=== PATIENT | female | born 1965 | race Caucasian/White ===

== ENCOUNTER 2020-03-31 08:17 | Outpatient (CLI) | payer OTHER, SELFPAY ==
--- NOTE | ~2020-03-31 | MM_ITS ---
EXAMINATION: MM screening [facility] BI w joon HISTORY: Screening mammogram TECHNIQUE: Craniocaudal and mediolateral oblique 3-D tomosynthesis images were obtained and synthetic 2-D images were generated. CAD analysis was submitted and interpreted. COMPARISON: 10/16/2018, 11/09/2017, 10/11/2016 bilateral digital screening mammogram examinations BREAST PARENCHYMAL COMPOSITION: The breasts are almost entirely fatty..................... FINDINGS: There is no evidence of suspicious mass, calcification, or architectural distortion to sugg est malignancy in either breast. There has been no suspicious interval change. IMPRESSION: 1. No mammographic evidence of malignancy. 2. Recommend routine screening mammography in one year. BI-RADS Category 1: Negative Reviewed, dictated and finalized at location A.
== END 2020-03-31 08:18 | disposition home or self-care (01) ==
PROVIDERS: PCP Family Medicine; Visit Provider Physician Assistant Medical
DX: Z12.31 Encounter for screening mammogram for malignant neoplasm of breast (principal)
CPT/HCPCS: 77063; 77067

== ENCOUNTER 2020-12-13 13:50 | Outpatient (CLI) | payer OTHER, SELFPAY ==
--- NOTE | 2020-12-13 14:10 | ECHO_ITS ---
Patient Info Name: Ayla Martinez Age: 55 years : 1965 Gender: Female Ht: 63 in Wt: 176 lbs BSA: 1.91 m2 HR: 68 bpm BP: 160 / 82 mmHg Technical Quality: Fair Exam Date: 12/13/2020 2:36 PM Exam Location: [facility] Patient Status: Outpatient Admit Date: 12/13/2020 Staff Ordering Physician: Amy Pineda PAC Building Services Technician: ANGELINE Attending Provider: Amy Pineda PAC Referring Physician: Miriam WISEMAN; Exam Type: CA echo doppler color flow Study Info Indications - CARDIAC MURMUR Complete two-dimensional, color flow and Doppler transthoracic echocardiogram is performed. Summary 1. Complete two-dimensional, color flow and Doppler transthoracic echocardiogram is performed. 2. Left ventricular chamber dimension is normal. 3. Left ventricular systolic function is normal, estimated at 60-65%. 4. The left ventricular diastolic function is normal. 5. E/e' 7 is not elevated. 6. There is trace mitral valve regurgitation. Left Ventricle E/e' 7 is not elevated. Left ventricular chamber dimension is normal. Left ventricular systolic function is normal, estimated at 60-65%. The left ventricular diastolic function is normal. Right Ventricle Right ventricular chamber dimension is normal. Right ventricular systolic function is normal. Left Atria Left atrial chamber dimension is normal. Right Atria Right atrial chamber dimension is normal. Aortic Valve The aortic valve is trileaflet. There is no aortic valve stenosis. There is no aortic valve regurgitation. Pulmonic Valve There is no pulmonic regurgitation. Mitral Valve There is no mitral valve stenosis. There is trace mitral valve regurgitation. Tricuspid Valve There is no tricuspid valve regurgitation. Pericardium/Pleural There is no pericardial effusion. Inferior Vena Cava Normal inferior vena cava with >50% collapse upon inspiration consistent with normal right atrial pressure, 5 mmHg. Aorta The aortic root size at the sinus of Valsalva is normal. Left Ventricular Outflow Tract Name Value Normal LVOT 2D LVOT Diameter 2.2 cm LVOT Doppler LVOT Peak Gradient 5 mmHg LVOT Mean Gradient 3 mmHg LVOT VTI 25 cm LVOT VTI/AV VTI Ratio 0.7 LVOT Stroke Volume 93 ml LVOT CO 16.0 l/min LVOT CI 8.4 l/min/m2 Mitral Valve Name Value Normal MV Doppler MV Decel Pickett 364 cm/s2 MV PHT 65 ms MV Area (PHT) 3.4 cm2 4.0-5.0 MV Regurgitation Doppler MR Peak Gradient 12 mmHg
== END 2020-12-13 13:51 | disposition home or self-care (01) ==
PROVIDERS: PCP Family Medicine; Visit Provider Physician Assistant Medical
DX: R01.1 Cardiac murmur, unspecified (principal)
CPT/HCPCS: 93306

== ENCOUNTER 2021-02-02 09:38 | Outpatient (CLI) | payer OTHER, SELFPAY ==
--- NOTE | ~2021-02-02 | DEXA_ITS ---
Bone Density Report Name: Ayla Martinez Age: 55 Sex: Female Ethnicity: White Date of : 1965 Indication: postmenopausal; hysterectomy; Referring Provider: Amy Pineda Study: Bone densitometry was performed. Exam Date: February 02, 2021 Accession number: [id number] Bone Density: Region BMD T-score Z-score Classification AP Spine (L1-L4) 1.030 -0.2 0.9 Normal Femoral Neck (Left) 0.849 0.0 1.1 Normal Total Hip (Left) 0.999 0.5 1.2 Normal Total Hip Bilateral Avg 0.979 0.3 1.0 Normal Femoral Neck (Right) 0.811 -0.3 0.7 Normal Total Hip (Right) 0.958 0.1 0.8 Normal World Health Organization criteria for BMD impression classify patients as: Normal (T-score at or above -1.0), Osteopenia (T-score between -1.0 and -2.5), or Osteoporosis (T-score at or below -2.5). 10-year Fracture Risk: FRAX not reported because: All T-scores for Spine Total, Hip Total, Femoral Neck at or above -1.0 Previous Exams: Region Exam Age BMD T-score BMD Change BMD Change Date g/cm2 vs Baseline vs Previous AP Spine(L1-L4) 02/02/2021 55 1.030 -0.2 -0.019(-1.8%)# 0.000(0.0%) 10/16/2018 52 1.030 -0.2 -0.019(-1.8%)# -0.007(-0.6%) 10/11/2016 50 1.037 -0.1 -0.012(-1.1%)# -0.012(-1.1%)# 04/25/2010 44 1.049 0.0 Total Hip(Left) 02/02/2021 55 0.999 0.5 -0.075(-7.0%)# -0.061(-5.8%)* 10/16/2018 52 1.060 1.0 -0.014(-1.3%)# 0.010(1.0%) 10/11/2016 50 1.050 0.9 -0.024(-2.2%)# -0.024(-2.2%)# 04/25/2010 44 1.074 1.1 Total Hip(Right) 02/02/2021 55 0.958 0.1 -0.111(-10.4%) -0.141(-12.8%) 10/16/2018 52 1.099 1.3 0.029(2.8%)# 0.092(9.2%)* 10/11/2016 50 1.007 0.5 -0.063(-5.9%)# -0.063(-5.9%)# 04/25/2010 44 1.070 1.0 *Denotes significance at 95% confidence level, LSC for AP Spine = 0.022 g/cm2, LSC for Total Hip = 0.027 g/cm2 Clinical Information Provided by Patient: Has used the following medications: Vitamin D Has the following medical conditions: Hysterectomy, HYPERTHYROIDISM Patient maximum height was 63 Menopause Age: 30 No regular weight bearing exercise Drinks caffeinated beverages Onset of menses at age 15 Number of children 2 Impression: The patient has normal bone mass. The BMD for the Total Hip(Left) decreased, changing by -5.8% since the last DXA exam. The BMD for the Total Hip(Right) decreased, changing by -12.8% since the last DXA exam. Discussion: BONE DENSITY IS ABOVE THE MINIMUM
== END 2021-02-02 09:39 | disposition home or self-care (01) ==
LOC: ANHIMG 09:41
PROVIDERS: PCP Family Medicine; Visit Provider Physician Assistant Medical
DX: Z13.820 Encounter for screening for osteoporosis (principal)
CPT/HCPCS: 77080

== ENCOUNTER 2021-05-11 07:31 | Outpatient (CLI) | payer OTHER, SELFPAY ==
--- NOTE | ~2021-05-11 | MM_ITS ---
EXAMINATION: MM screening [facility] BI w ojon HISTORY: Screening TECHNIQUE: Craniocaudal and mediolateral oblique 3-D tomosynthesis images were obtained and synthetic 2-D images were generated. CAD analysis was submitted and interpreted. COMPARISON: Comparison to multiple prior studies sequentially, with oldest reviewed study dated 06/12. BREAST PARENCHYMAL COMPOSITION: There are scattered areas of fibroglandular density. FINDINGS: There is no evidence of suspicious mass, calcification, or architectural distortion to sugg est malignancy in either breast. There has been no suspicious interval change. IMPRESSION: 1. No mammographic evidence of malignancy. 2. Recommend routine screening mammography in one year. BI-RADS Category 1: Negative Reviewed, dictated and finalized at location A.
== END 2021-05-11 07:32 | disposition home or self-care (01) ==
LOC: ANHIMG 07:33
PROVIDERS: PCP Family Medicine; Visit Provider Nurse Practitioner Family
DX: Z12.31 Encounter for screening mammogram for malignant neoplasm of breast (principal)
CPT/HCPCS: 77063; 77067

== ENCOUNTER 2022-08-26 15:23 | Outpatient (CLI) | payer OTHER, SELFPAY ==
--- NOTE | ~2022-08-26 | MM_ITS ---
EXAMINATION: MM screening [facility] BI w joon HISTORY: Screening TECHNIQUE: Craniocaudal and mediolateral oblique 3-D tomosynthesis images were obtained and synthetic 2-D images were generated. CAD analysis was submitted and interpreted. COMPARISON: Comparison to multiple prior studies sequentially, with oldest reviewed study dated 11/2015. BREAST PARENCHYMAL COMPOSITION: Breast composed of scattered areas of fibroglandular density FINDINGS: There is no evidence of suspicious mass, calcification, or architectural distortion to sugg est malignancy in either breast. There has been no suspicious interval change. IMPRESSION: 1. No mammographic evidence of malignancy. 2. Recommend routine screening mammography in one year. BI-RADS Category 1: Negative Reviewed, dictated and finalized at location A. GRAPH LINEMAN
== END 2022-08-26 15:24 | disposition home or self-care (01) ==
PROVIDERS: PCP Family Medicine; Visit Provider Nurse Practitioner Family
DX: Z12.31 Encounter for screening mammogram for malignant neoplasm of breast (principal)
CPT/HCPCS: 77063; 77067

== ENCOUNTER 2022-09-27 06:54 | Inpatient (IN) | payer OTHER, SELFPAY ==
[2022-09-27] VITALS (46 sets, daily range): BP systolic 141–176; BP diastolic 64–85; PULSE 49–89; RESP 10–20; TEMP 35.8–36.4; O2SAT 99–100; BMI 32.2
--- NOTE | ~2022-09-27 | CT_ITS ---
EXAMINATION: CTA chest PE protocol DATE: 09/27/2022 09:17 CDT INDICATION: Pulmonary embolism. Chest pain. Elevated d-dimer. TECHNIQUE: Computed tomographic angiography (CTA) of the chest was performed with 100 mL Omnipaque-35 0 intravenous contrast. The dose-length product was 585.13 mGy-cm. Maximum intensity projection 3D-re constructions of the aorta and other arteries were constructed by the technologist on a separate work station. Automated exposure control and iterative reconstruction technique were employed. COMPARISON: None. FINDINGS: Heart size normal. No significant pleural or pericardial effusion. No evidence for aortic a neurysm or dissection. Study is technically limited without evidence for pulmonary embolism. No thora cic lymphadenopathy. Upper abdomen is unremarkable. No focal airspace consolidation. No pneumothorax. No acute osseous abnormality. Mild lumbar spondylosis. IMPRESSION: 1. No evidence for pulmonary embolism. No acute cardiopulmonary disease. Reviewed, dictated and finalized at location A.
--- NOTE | ~2022-09-27 | XR_ITS ---
EXAMINATION: XR chest 2V 09/27/2022 07:48 INDICATION: Chest pressure. Hypertension. PROCEDURE: 2 view chest COMPARISON: 04/17/2004 FINDINGS: The lungs are clear. The cardiomediastinal silhouette is within normal limits. There are no pleural effusions. There is no pneumothorax suspected. IMPRESSION: 1: NO ACUTE CARDIOPULMONARY DISEASE. Reviewed, dictated and finalized at location A.
--- NOTE | 2022-09-27 06:56 | ECG_ITS ---
Measurements Intervals [place] Rate: 73 P: 30 [place]: 151 QRS: 49 QRSD: 97 T: 17 QT: 380 QTc: 419 Interpretive Statements SINUS RHYTHM BASELINE ARTIFACT- V5 NORMAL ECG NO PREVIOUS ECG AVAILABLE FOR COMPARISON Electronically Signed On 09-27-2022 8:13:16 CDT by Toney Montero D.O.
--- NOTE | 2022-09-27 07:12 | ED.CHESTPAIN ---
HPI - Chest Pain General Chief Complaint: Chest Pain Stated Complaint: chest pain/pressure Time Seen by Provider: 09/27/22 07:12 Source: patient and family Mode of arrival: ambulatory Limitations: no limitations History of Present Illness HPI narrative: Patient woke up at 530 this morning to go to the bathroom. In the way to the bathroom developed severe chest pressure across the chest, and across the back, radiating to right upper extremity. She denies any aggravating or relieving factors. 7 out of 10, on arrival to the ED 4 out of 10, patient did not receive any medication at that time, did not take her morning medication yet. History of hypertension, hyperlipidemia, diabetes, hypothyroidism and both parents had history of heart attack. Patient is not on antiplatelet or anticoagulant medications. Related Data Home Medications Medication Instructions Recorded Confirmed loratadine 10 mg tablet (Claritin) 10 mg PO DAILY 03/10/22 09/27/22 cholecalciferol (vitamin D3) 25 25 mcg PO DAILY 09/23/22 09/23/22 mcg (1,000 unit) tablet omega 2-pqv-wmp-fish oil 1,200 mg cap PO 09/23/22 09/23/22 (144 mg-216 mg) capsule (Fish Oil) atorvastatin 40 mg tablet 40 mg PO 09/27/22 dapagliflozin 5 mg tablet (Farxiga) 5 mg DAILY 09/27/22 levothyroxine 100 mcg tablet 100 mcg DAILY 09/27/22 omeprazole 20 mg capsule,delayed 20 mg DAILY 09/27/22 release Allergies Allergy/AdvReac Type Severity Reaction Status Date / Time lisinopril Allergy Severe Swelling Verified 09/27/22 07:35 of the Eye simvastatin AdvReac Intermediate Palpitation Verified 09/27/22 07:35 s Review of Systems Review of Systems: All systems reviewed & are unremarkable except as noted in HPI and below PMFSH Past Medical History Medical History Adult BMI 31.0-31.9 kg/sq m COVID COVID-19 Surgical History Surgical History H/O: section H/O: hysterectomy Family History Family History Mother Hypertension Family history of diabetes mellitus in first degree relative Acute myocardial infarction Father Cerebrovascular accident Acute myocardial infarction Sibling Family history of diabetes mellitus in first degree relative Diabetes mellitus Acute myocardial infarction Sibling COPD (chronic obstructive pulmonary disease) Social History Social History Smoking status: Never smoker Second hand tobacco smoke exposure: Yes Alcohol intake: never Substance use: never Substance use type: does not use Living arrangements: with family Occupation/Education: occupation 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 Gender identity (if verbalized by the patient): Female Exam Narrative: General appearance: Well-developed, well-nourished Skin: Normal color Head: Normocephalic, nontraumatic Eyes: Clear conjunctiva ENT: Oropharynx normal, ears normal, nose normal Neck: Supple, nontender Chest and respiratory: Airway patent, no respiratory distress, no accessory muscle use Heart: Regular rate/rhythm Abdomen: Soft, nontender, no organomegaly, quiet bowel sounds Vascular: Normal peripheral pulses, normal capillary refill. Musculoskeletal: Normal range of motion, nontender back, slight diffuse tenderness across the chest and across the back, no bruises, no swelling or rash Neurologic: Alert and oriented ?3, INSIDE SALES ADVISOR is normal as tested, no gross motor deficit Course Reevaluation(s) Reeval
[2022-09-27 07:38] LABS: Basophils Percent Auto 0.3 % (0.2-1.2); Eosinophils Percent Auto 0.2 % (0-4.4); Hematocrit 37.7 % (37.0-47.0); Hemoglobin 11.2 g/dL (12.0-15.0); Immature Granulocyte Absolute 0.04 K/mm3 (0.00-0.031); Immature Granulocyte Percent A 0.5 % (0-0.5); Lymphocytes Percent Auto 22.6 % (18.3-44.2); Mean Corpuscular HGB Conc 29.7 g/dl (32-36); Mean Corpuscular Hemoglobin 24.7 pg (26-34); Mean Corpuscular Volume 83.2 fl (80-100); Mean Platelet Volume 9.4 fl (7.4-10.4); Monocytes Absolute Auto 0.5 K/mm3 (0.1-0.6); Monocytes Percent Auto 5.1 % (2.6-8.5); Neutrophils Absolute Auto 6.3 K/mm3 (1.3-6.7); Neutrophils Percent Auto 71.3 % (45.5-73.1); Platelet Count Result 425 k/mm3 (150-375); Red Blood Count 4.53 M/mm3 (4.2-5.4); Red Cell Distribution Width 16.6 % (11.5-14.5); White Blood Count 8.9 K/mm3 (4.5-10.0)
--- NOTE | 2022-09-27 07:42 | PC.NURSE ---
Pt off floor to radiology
[2022-09-27 07:49] LABS: Alanine Aminotransferase 21 U/L (6-35); Albumin Level 4.7 g/dL (3.5-5.1); Alkaline Phosphatase 73 U/L (38-126); Anion Gap 8 mmol/L (8-16); Aspartate Amino Transferase 19 U/L (14-36); Bilirubin,Total 0.5 mg/dL (0.2-1.3); Blood Urea Nitrogen 14 mg/dL (7-17); Calcium 9.5 mg/dL (8.4-10.2); Carbon Dioxide 29 mmol/L (22-30); Chloride 105 mmol/L (98-107); Estimated CRCL calculation 90 ml/min; Estimated Glomerular Filt Rate > 60; Glucose 115 mg/dL (65-110); Lipase 110 U/L (23-300); Potassium 3.7 mmol/L (3.4-5.0); Sodium 142 mmol/L (137-145)
[2022-09-27 07:53] LABS: Platelet Estimate Increased (Adequate)
[2022-09-27] MEDS: ASPIRIN 81 MG CHEWABLE TABLET 324 MG PO (07:53)
[2022-09-27 07:54] LABS: Anisocytosis 1+ (NORMAL); Hypochromasia 1+ (NORMAL); Schistocytes None Seen (NORMAL)
[2022-09-27] MEDS: METOPROLOL TARTRATE 50 MG TAB 25 MG PO (07:54)
[2022-09-27] MEDS: NITROGLYCERIN SL 0.4 MG TABLET SUBLINGUAL (07:57)
[2022-09-27 08:20] LABS: Prothrombin Time 12.7 Seconds (11.1-14.7)
--- NOTE | 2022-09-27 09:04 | PC.NURSE ---
Pt off floor for CTA
[2022-09-27 10:41] LABS: Troponin I 0.099 ng/mL (0.000-0.034)
--- NOTE | 2022-09-27 10:43 | ECG_ITS ---
Measurements Intervals [place] Rate: 55 P: 41 TN: 164 QRS: 55 QRSD: 92 T: 47 QT: 410 QTc: 395 Interpretive Statements SINUS BRADYCARDIA BASELINE ARTIFACT- I, III, AVR, AVL, V1 BORDERLINE ECG COMPARED TO ECG 09/27/2022 07:01:34 SINUS BRADYCARDIA NOW PRESENT Electronically Signed On 09-27-2022 21:29:21 CDT by Toney Montero D.O.
[2022-09-27] MEDS: ENOXAPARIN 80 MG/0.8 ML SYRINGE SUB-Q (13:44)
[2022-09-27 14:57] LABS: Troponin I 0.601 ng/mL (0.000-0.034)
--- NOTE | 2022-09-27 15:53 | PM.CNCAR ---
Assessment and Plan Assessment and plan (1) Non-ST elevated myocardial infarction: Code(s): I21.4 - Non-ST elevation (NSTEMI) myocardial infarction Status: Acute Assessment and Plan: Patient without prior symptoms has developed an acute coronary syndrome with a non-STEMI. Has been pain-free since admission. EKG shows very questionable ST depression in the lateral leads on admission. Hemodynamically stable at the present time. However, having a non-STEMI puts her at risk of significant morbidity and mortality. --counseled patient and her daughter on non-STEMI, coronary disease, evaluation and treatment. --continue aspirin --continue anticoagulant, either Lovenox or heparin. She was given 1 dose of Lovenox in the ER and we will continue that. --beta-christopher is tolerate; somewhat bradycardic at this time, after given a dose of beta-christopher in ER. --check lipids --continue atorvastatin, currently taking 40 mg daily. Will increase to 80 mg daily. --cardiac catheterization on Thursday, +/- PCI depending on the anatomy. Since pt has had no angina, I wonder if she has any significant CAD; perhaps plaque rupture/erosion with superimposed thrombus which may improve significantly w/ anticoagulation and antiplatelet tx. --If the patient becomes unstable we perform cardiac catheterization emergently. Reviewed procedure with patient and daughter. Patient desires to proceed. (2) Hypertension: Code(s): I10 - Essential (primary) hypertension Status: Acute Assessment and Plan: --BP has been quite high since admission although normally well controlled --continue losartan, added metoprolol (3) Dyslipidemia: Code(s): E78.5 - Hyperlipidemia, unspecified Status: Acute Assessment and Plan: Takes atorvastatin 40 mg daily. --check lipids --increased to 80 mg daily (4) Type 2 diabetes mellitus: Code(s): E11.9 - Type 2 diabetes mellitus without complications Status: Acute Assessment and Plan: Sounds like the diabetes is well controlled.--continue Farxiga, metformin History of Present Illness History of Present Illness Consult date/time: 09/27/22 15:53 Reason For Visit: chest pain Narrative: Ayla Martinez is a 56-year-old female whom I was asked to see at the request of Dr. Enriquez for my advice and been regarding her chest pain in consultation. She has no prior history of heart disease. She does have hypertension, hyperlipidemia, diabetes, and a family history of heart problems. Were then has been in normal state of health until earlier this week when she is our primary care doctor because of dizziness and was given a short course of prednisone and meclizine with improvement. This morning at around 5:30 a.m. she went to go to the bathroom M suddenly noted significant chest heaviness wrapping around her lower chest, to the left scapular area and later settling into a substernal ache radiating to the right arm. There are no associated symptoms. However so alarming such her brought her to the emergency room on 01/09 where she was given some Lopressor nitroglycerin aspirin with relief. She has been doing well since then. However, her troponins around 0.60. Until today the patient has been able to walk fasting sugar with no particular problems. Her diabetes is control with an A1c of 7.0 and her blood pressure has been controlled as well. She is a nonsmoker. No particular problems with bleeding issues. Review of Systems Constitutional: Constitutional: Denies fever(s) Eyes: Eyes: Reports blurry vision (Episode of blurred vision about a week ago. Unclear etiology.) ENT: Denies epistaxis Cardiovascular: Cardiovascular: Reports chest pain (This morning), Denies pedal edema, Denies lightheadedness and Denies dyspnea Respiratory: Respiratory: Denies chest congestion and Denies dyspnea Gastrointestinal: Gastrointestinal: Denies abdominal pain and Denies h
--- NOTE | 2022-09-27 15:59 | PC.NURSE ---
This patient, Ayla Martinez, was admitted to IMU Room 210-01 from ED at 11:48 am Patient/family oriented to hospital policies and general routines including ID bracelet, bed and alarms, visiting hours, pain management, procedures, bathroom and other care routines, personal items, smoking policy, room service/diet, and visiting hours. Information on how to activate the Rapid Response Team has been discussed. Patient/Family are encouraged to report perceived risks to care and to ask questions if they do not understand what they are told or what they should do.
--- NOTE | 2022-09-27 16:00 | PM.IMHP ---
H&P: HPI History of Present Illness Date/Time: 09/27/22 16:00 Chief Complaint: Chest pain. Narrative: This is a pleasant 56-year-old female with hypertension, dyslipidemia, type 2 diabetes mellitus, hypothyroidism, and GERD who presented to the emergency department via private vehicle from home for evaluation of chest pain. Patient provides the following history. She has been suffering from vertigo the last couple of weeks, mainly in the morning, and she was started on prednisone and meclizine several days ago for reported fluid behind the ears. She has otherwise been doing okay. This morning she got up to use the restroom at about 05:30 at which time she developed pretty significant heaviness/pressure diffusely across the chest, radiating to the left scapula. It seemed to settle in the substernal region and she has aching and pressure radiating to the right arm. She lay down for a period of time but the discomfort did not resolve and remained pretty intense, which she rated 7/10. She was given aspirin and nitroglycerin in the ED with resolution in her symptoms and they have not returned. She has never had similar symptoms in the past. She has no known history of cardiac disease and has never had a stress test. Both of her parents had history of MS though later in life, 70s and 80s. Blood pressures have been pretty consistently in the 160s over 70s since arrival though she admits to feeling anxious. Remaining vital signs were stable. Labs were significant for normal electrolytes and LFTs, slightly elevated D-dimer at 1.20, and an initial troponin which was within normal limits. Troponins have since trended as followin.030 --> 0.099 --> 0.601. EKG showed a sinus rhythm with normal axis and no ST segment changes. CTA of the chest was negative for pulmonary embolism and acute cardiopulmonary disease. Since arrival she has received aspirin 324 mg p.o., metoprolol 25 mg p.o., and enoxaparin 50 mg subcu. She is being admitted in this setting for close monitoring and Cardiology consultation. Review of Systems Review of Systems: Twelve systems were reviewed. No fever, chills, or sweats. No recent cold or flu symptoms. Occasional tinnitus which is not a new finding for her. She has been having some vertigo as detailed in HPI. No other neurologic symptoms. She denies orthopnea, paroxysmal nocturnal dyspnea, and edema. No nausea, vomiting, diarrhea, or dysuria. She admits that she does not check her blood sugars or blood pressures at home very often. Most recent hemoglobin A1c was about 7%. Except as documented, all other systems were reviewed and are negative. [facility] Past Medical History Medical History (Updated 09/27/22 @ 16:20 by Cindy Canales PA-C) Dyslipidemia Hypertension Hypothyroidism Type 2 diabetes mellitus Surgical History Surgical History (Updated 09/27/22 @ 16:17 by Cindy Canales PA-C) History of delivery History of hysterectomy Family History Family History Mother Hypertension Family history of diabetes mellitus in first degree relative Acute myocardial infarction MS in her late 60s Father Cerebrovascular accident Stroke in his mid 60s Acute myocardial infarction MS in his mid 50s , Onset Age: 70 Sibling Family history of diabetes mellitus in first degree relative Diabetes mellitus Acute myocardial infarction Sibling COPD (chronic obstructive pulmonary disease) Social History Social History (Updated 09/27/22 @ 21:47 by Cindy Canales PA-C) Social History: Surrogate medical decision maker: Ramesh Martinez, spouse. Code status: Full code. Smoking status: Never smoker Second hand tobacco smoke exposure: No Alcohol intake: never Substance use: never Substance use type: does not use Lack of Transportation: YES Lack of Food: Never True Current Housing: [facility]ous
[2022-09-27 16:35] LABS: Glucose Point of Care 148 mg/dl (65-105)
[2022-09-27] MEDS: hydrALAZINE HCL 20 MG/ML VIAL 10 MG IV PUSH (17:06)
[2022-09-27] MEDS: LOSARTAN POTASSIUM 50 MG TABLET PO (17:45)
[2022-09-27] MEDS: METOPROLOL TARTRATE 25 MG TABLET PO (20:23)
[2022-09-27 20:36] LABS: Glucose Point of Care 125 mg/dl (65-105)
[2022-09-28] VITALS (14 sets, daily range): BP systolic 136–168; BP diastolic 53–80; PULSE 48–90; RESP 16–20; TEMP 36.1–36.7; O2SAT 98–100
[2022-09-28] MEDS: ENOXAPARIN 80 MG/0.8 ML SYRINGE SUB-Q ×2 (01:57→13:26)
[2022-09-28 05:01] LABS: Hematocrit 36.1 % (37.0-47.0); Hemoglobin 10.7 g/dL (12.0-15.0); Mean Corpuscular HGB Conc 29.6 g/dl (32-36); Mean Corpuscular Hemoglobin 24.3 pg (26-34); Mean Corpuscular Volume 81.9 fl (80-100); Mean Platelet Volume 9.7 fl (7.4-10.4); Platelet Count Result 389 k/mm3 (150-375); Red Blood Count 4.41 M/mm3 (4.2-5.4); Red Cell Distribution Width 16.4 % (11.5-14.5); White Blood Count 9.4 K/mm3 (4.5-10.0)
[2022-09-28 05:11] LABS: Anion Gap 5 mmol/L (8-16); Blood Urea Nitrogen 16 mg/dL (7-17); Calcium 9.1 mg/dL (8.4-10.2); Carbon Dioxide 33 mmol/L (22-30); Chloride 105 mmol/L (98-107); Cholesterol 144 mg/dL (0-200); Estimated CRCL calculation 80 ml/min; Estimated Glomerular Filt Rate > 60; Glucose 112 mg/dL (65-110); HDL Direct 43 mg/dL; Potassium 3.9 mmol/L (3.4-5.0); Sodium 143 mmol/L (137-145); Triglycerides 216 mg/dL (<150)
[2022-09-28 05:21] LABS: LDL Cholesterol Direct 72 mg/dL
[2022-09-28 05:42] LABS: Hemoglobin A1C 6.7 % (<5.7)
[2022-09-28] MEDS: LEVOTHYROXINE SODIUM 100 MCG TABLET BY MOUTH (06:22)
[2022-09-28 07:46] LABS: Glucose Point of Care 103 mg/dl (65-105)
[2022-09-28] MEDS: METOPROLOL TARTRATE 25 MG TABLET PO ×2 (09:15→21:14)
[2022-09-28] MEDS: LOSARTAN POTASSIUM 50 MG TABLET PO (09:15)
[2022-09-28] MEDS: CHOLECALCIFEROL 1,000 UNITS TABLET 1000 UNITS PO (09:15)
[2022-09-28] MEDS: LORATADINE 10 MG TABLET PO (09:15)
[2022-09-28] MEDS: PANTOPRAZOLE 40 MG TABLET PO (09:16)
[2022-09-28] MEDS: ASPIRIN 81 MG CHEWABLE TABLET PO (09:20)
[2022-09-28] MEDS: FLUTICASONE PROPIONATE 0.05% NA SPR 16 GM BTL (*BKC) 2 SPRAY NASAL (09:59)
[2022-09-28 11:43] LABS: Glucose Point of Care 127 mg/dl (65-105)
--- NOTE | 2022-09-28 13:41 | PM.PNCARD ---
Progress Note: A&P Assessment and Plan (1) Non-ST elevated myocardial infarction: Code(s): I21.4 - Non-ST elevation (NSTEMI) myocardial infarction Status: Acute Assessment and Plan: Patient without prior symptoms has developed an acute coronary syndrome with a non-STEMI. Has been pain-free since admission. EKG shows very questionable ST depression in the lateral leads on admission. Hemodynamically stable at the present time. However, having a non-STEMI puts her at risk of significant morbidity and mortality. --Cont ASA, statin, ARB --Hold Lovenox after today's dose in prep for invasive procedure. If anymore CP, then switch to heparin (easier to measure and manage in cath lab technologist) --cardiac catheterization on Thursday, +/- PCI depending on the anatomy. Aware that sometimes PCI is not an option and some lesions are best tx'd w/ CABG. Reviewed the procedure with the patient and her and the need for dual anti-platelet therapy if PCI performed. --If the patient becomes unstable we perform cardiac catheterization emergently. Reviewed procedure with patient and daughter. Patient desires to proceed. (2) Hypertension: Code(s): I10 - Essential (primary) hypertension Status: Acute Assessment and Plan: --BP has been quite high since admission --continue losartan, added metoprolol. --Add amlodipine; perhaps change losartan to amlodipine/valsartan on discharge (3) Dyslipidemia: Code(s): E78.5 - Hyperlipidemia, unspecified Status: Acute Assessment and Plan: Takes atorvastatin 40 mg daily. Increased to 80 mg qd this admission. -- LDL good but not perfect -- add ezetimibe (4) Type 2 diabetes mellitus: Code(s): E11.9 - Type 2 diabetes mellitus without complications Status: Acute Assessment and Plan: Sounds like the diabetes is well controlled.--continue Farxiga, metformin (5) RBC microcytosis: Code(s): R71.8 - Other abnormality of red blood cells Status: Acute Assessment and Plan: borderline anemia with microcytic indices --Check iron studies and repeat H&H in a.m. -- continue PPI (change omeprazole to protonix) Subjective Date/time seen: Follow-up for non STEMI, acute coronary syndrome. History of hypertension, diabetes, hyperlipidemia, and family history of premature CAD. 09/27/2022: Started Lovenox, metoprolol 09/28/22 13:41 Feeling well, no further CP. keeping her company. BP running high, 140s-160s. LDL cholesterol was 72. Borderline anemia with a hematocrit of 36 and microcytic indices--no h/o bleeding. Review of Systems Review of Systems: No chest pain, shortness of breath, GI problems, bleeding, nausea Exam Const: General: cooperative, healthy appearing and comfortable; No confusion Orientation/consciousness: oriented to person, patient oriented x3 and No confusion Other: husbandat the bedside HENMT: Mouth: Yes moist mucous membranes Eyes: General: appearance normal, both eyes and all related structures EOM: EOMs intact bilaterally Neck: Neck: no JVD Thyroid: thyroid normal Carotids: no bruits Resp: Effort & Inspection: normal respiratory effort Auscultation: clear to auscultation bilaterally Cardio: Rate: regular rate Rhythm: regular rhythm Heart sounds: Murmur heart sound present (1-2/6 systolic ejection murmur left upper sternal border) Other: Dorsalis pedis pulses diminished especially on the left GI: Inspection: normal to inspection Skin: General skin exam: normal color and no rashes or lesions noted Neuro: General: oriented to person, patient oriented x3 and No confusion Extrem: Right lower extremity: no edema Left lower extremity: no edema Psych: Appearance: grossly normal Mental Status: mental status grossly normal Other: Mildly anxious Objective Data Vital Signs Vital Signs: Vital Signs - 24 hr 09/27/22 14:00 09/27/22 16:00 09/27/22 16:00 Temper
--- NOTE | 2022-09-28 14:24 | PM.IMPN ---
Progress Note: A&P Assessment and Plan (1) Non-ST elevated myocardial infarction: Code(s): I21.4 - Non-ST elevation (NSTEMI) myocardial infarction Status: Acute Assessment and Plan: The patient presented to the emergency department for evaluation of chest pain. Troponin elevated to 0.6. Normal appearing EKG. Symptoms and elevate Trop consistent with NSTEMI. She has been started on Lovenox 1 milligram/kilogram b.i.d. Continue ASA, lopressor. She has allergy to simvastatin but able to take atorvastatin which we will continue. Cardiology consulted with plans for cardiac catheterization tomorrow. Follow. (2) Hypertension: Code(s): I10 - Essential (primary) hypertension Status: Acute Assessment and Plan: Patient's blood pressure was reviewed on 09/28 Blood pressure elevated at times. Will continue current medications. (3) Dyslipidemia: Code(s): E78.5 - Hyperlipidemia, unspecified Status: Acute Assessment and Plan: As above. Advance atorvastatin to 80mg. (4) Type 2 diabetes mellitus: Code(s): E11.9 - Type 2 diabetes mellitus without complications Status: Acute Assessment and Plan: A1c 6.7. The patient's blood glucose was reviewed on 09/28 Glucose remains well controlled. Continue AccuCheks covering with sliding scale. Hypoglycemia protocol available as needed. Continue current medications. (5) Hypothyroidism: Code(s): E03.9 - Hypothyroidism, unspecified Status: Acute Assessment and Plan: TSH normal. Continue Synthroid Plan Anemia - mild. Check iron, B12 levels. She may need DAPT if she requires a stent Subjective Date/time seen: 09/28/22 14:24 Interval history: 56yo female with DM, HTN and HLD here for chest pain. She feels well today. Eating normally. Nausea vomiting. No further chest pain. No shortness of breath. She does take Liptior 40mg daily Exam Narrative: AF 97.2 142/66 53 16 99% ra Gen - NARD Chest - CTA bilaterally, nml RR CV - RRR S1/S2. Tele showing no significant dysrhythmias Abd - Soft, NT/ND, Positive BS Ext - No pedal edema Psych - Nml mood and affect Skin - Warm and dry Objective Data Vital Signs Vital Signs: Vital Signs - 24 hr 09/27/22 16:00 09/27/22 16:00 09/27/22 18:00 Temperature 96.5 F L Pulse Rate 62 64 77 Respiratory Rate 16 Blood Pressure 171/65 H Pulse Oximetry 99 Oxygen Delivery 09/27/22 20:23 09/27/22 20:00 09/28/22 00:00 Temperature 96.9 F L 96.9 F L Pulse Rate 70 64 59 L Respiratory Rate 14 16 Blood Pressure 145/64 H 138/53 L Pulse Oximetry 99 98 Oxygen Delivery 09/27/22 20:00 09/27/22 22:00 09/28/22 00:00 Temperature Pulse Rate 75 49 L 52 L Respiratory Rate Blood Pressure Pulse Oximetry Oxygen Delivery 09/28/22 04:00 09/28/22 04:00 09/28/22 06:00 Temperature 97.5 F L Pulse Rate 60 48 L 49 L Respiratory Rate 16 Blood Pressure 145/59 H Pulse Oximetry 99 Oxygen Delivery 09/28/22 08:00 09/28/22 09:15 09/28/22 08:00 Temperature 97.1 F L Pulse Rate 62 90 Respiratory Rate 16 Blood Pressure 168/75 H Pulse Oximetry 99 Oxygen Delivery Room Air 09/28/22 08:00 09/28/22 10:00 09/28/22 12:00 Temperature 97.2 F L Pulse Rate 66 57 L 53 L Respiratory Rate 16 Blood Pressure 142/66 H Pulse Oximetry 99 Oxygen Delivery Intake/Output Intake/Output: Intake & Output 09/25/22 09/26/22 09/27/22 09/28/22 23:59 23:59 23:59 23:59 Intake Total 1700 830 Output Total 1000 900 Balance 700 -70 Meds/Results Medications: Active Medications Generic Name Dose Route Start Last Admin Trade Name Freq PRN Reason Stop Dose Admin Acetaminophen 650 mg 09/27/22 08:20 Acetaminophen 325 Mg Tablet PO Q4H PRN Mild Pain (1-3) or Fever OR LOCKHART Aspirin 81 mg 09/28/22 08:00 09/28/22 09:20 Aspirin 81 Mg Chewable Tablet PO 81 mg JEEVAN
[2022-09-28 16:22] LABS: Glucose Point of Care 95 mg/dl (65-105)
[2022-09-28] MEDS: ATORVASTATIN 40 MG TABLET 80 MG PO (17:06)
[2022-09-28 20:05] LABS: Glucose Point of Care 152 mg/dl (65-105)
[2022-09-29] VITALS (38 sets, daily range): BP systolic 134–177; BP diastolic 57–81; PULSE 45–73; RESP 12–20; TEMP 36.3–37.1; O2SAT 97–100
--- NOTE | 2022-09-29 03:11 | ECG_ITS ---
Measurements Intervals [place] Rate: 52 P: 31 WI: 168 QRS: 51 QRSD: 92 T: 61 QT: 408 QTc: 381 Interpretive Statements SINUS BRADYCARDIA BASELINE ARTIFACT- I, II, AVR BORDERLINE ECG COMPARED TO ECG 09/27/2022 10:55:06 NO SIGNIFICANT CHANGES Electronically Signed On 09-29-2022 6:51:26 CDT by Tnoey Montero D.O.
[2022-09-29] MEDS: hydrALAZINE HCL 20 MG/ML VIAL 10 MG IV PUSH (03:36)
[2022-09-29] MEDS: MECLIZINE HCL 25 MG TABLET PO (03:37)
--- NOTE | 2022-09-29 03:46 | PC.NURSE ---
PATIENT CALLED OUT WITH C/O:LT SHOULDER PAIN ON BACK UNDER SHOULDER BLADE, ONLY WHEN LAYING DOWN. DIZZY WHEN LAYING ON RT SIDE. BILATERAL ARM TINGLING. DR AWAN AWARE. EKG DONE AND MEDICATION GIVEN FOR ELEVATED BLOOD PRESSURE AND DIZZINESS.
[2022-09-29] MEDS: ACETAMINOPHEN 325 MG TABLET 650 MG PO (04:59)
[2022-09-29] MEDS: LEVOTHYROXINE SODIUM 100 MCG TABLET BY MOUTH (05:00)
[2022-09-29 05:08] LABS: Hematocrit 34.4 % (37.0-47.0); Hemoglobin 10.5 g/dL (12.0-15.0)
[2022-09-29 05:11] LABS: Hematocrit 35.9 % (37.0-47.0); Hemoglobin 10.7 g/dL (12.0-15.0); Mean Corpuscular HGB Conc 29.8 g/dl (32-36); Mean Corpuscular Hemoglobin 24.8 pg (26-34); Mean Corpuscular Volume 83.3 fl (80-100); Mean Platelet Volume 9.7 fl (7.4-10.4); Platelet Count Result 383 k/mm3 (150-375); Red Blood Count 4.31 M/mm3 (4.2-5.4); Red Cell Distribution Width 16.2 % (11.5-14.5); White Blood Count 7.5 K/mm3 (4.5-10.0)
[2022-09-29 05:19] LABS: Anion Gap 6 mmol/L (8-16); Blood Urea Nitrogen 17 mg/dL (7-17); Calcium 8.8 mg/dL (8.4-10.2); Carbon Dioxide 29 mmol/L (22-30); Chloride 106 mmol/L (98-107); Estimated CRCL calculation 92 ml/min; Estimated Glomerular Filt Rate > 60; Glucose 131 mg/dL (65-110); Potassium 3.8 mmol/L (3.4-5.0); Sodium 141 mmol/L (137-145)
[2022-09-29 05:47] LABS: Iron 30 ug/dL (37-170)
[2022-09-29 05:56] LABS: Percent Iron Saturation 7 % (20-50)
[2022-09-29 06:22] LABS: Ferritin 5.38 ng/mL (11.1-264)
[2022-09-29 06:24] LABS: Folic Acid 18.9 ng/mL (2.76->20); Vitamin B12 < 159.0 pg/mL (239-931)
[2022-09-29 08:26] LABS: Glucose Point of Care 150 mg/dl (65-105)
--- NOTE | 2022-09-29 08:54 | WPDMODSED ---
Moderate Sedation Note-Pt Data Patient Data Diagnosis: Acute coronary syndrome Diabetes Present Complaint: Chest pain Procedure to be performed/Plan: Left heart catheterization Allergies Allergy/AdvReac Type Severity Reaction Status Date / Time lisinopril Allergy Severe Swelling Verified 09/27/22 07:35 of the Eye simvastatin AdvReac Intermediate Palpitation Verified 09/27/22 07:35 s Home Medications Medication Instructions Recorded Confirmed Type blood sugar diagnostic (OneTouch #50 ea 03/26/20 09/28/22 Rx Ultra Blue Test Strip) metformin 1,000 mg tablet 1,000 mg PO BID #180 tabs 01/17/22 09/27/22 Rx loratadine 10 mg tablet (Claritin) 10 mg PO DAILY 03/10/22 09/27/22 History mometasone 50 mcg/actuation nasal 2 spray intranasal BID #17 grams 04/15/22 09/27/22 Rx spray losartan 50 mg tablet 50 mg PO DAILY #30 tabs 06/29/22 09/27/22 Rx cholecalciferol (vitamin D3) 25 25 mcg PO DAILY 09/23/22 09/27/22 History mcg (1,000 unit) tablet meclizine 25 mg tablet 25 mg PO TID PRN dizziness #30 tabs 09/23/22 09/27/22 Rx omega 3-dcn-tld-fish oil 1,200 mg 1,200 cap PO DAILY 09/23/22 09/28/22 History (144 mg-216 mg) capsule (Fish Oil) prednisone 10 mg tablet 30 mg PO DAILY 5 days #15 tabs 09/23/22 09/27/22 Rx atorvastatin 40 mg tablet 40 mg PO DAILY 09/27/22 09/27/22 History dapagliflozin 5 mg tablet (Farxiga) 5 mg PO DAILY 09/27/22 09/28/22 History levothyroxine 100 mcg tablet 100 mcg DAILY 09/27/22 09/27/22 History omeprazole 20 mg capsule,delayed 20 mg DAILY 09/27/22 09/27/22 History release Current Medications: Active Medications Acetaminophen (Acetaminophen 325 Mg Tablet) 650 mg PO Q4H PRN PRN Reason: Mild Pain (1-3) or Fever OR LOCKHART Last Admin: 09/29/22 04:59 Dose: 650 mg Amlodipine Besylate (Amlodipine Besylate 5 Mg Tablet) 5 mg PO QAM JERED Aspirin (Aspirin 81 Mg Chewable Tablet) 81 mg PO DAILY@0800 [facility] Last Admin: 09/28/22 09:20 Dose: 81 mg Atorvastatin Calcium (Atorvastatin 40 Mg Tablet) 80 mg PO DAILY [facility] Last Admin: 09/28/22 17:06 Dose: 80 mg Dextrose (Dextrose 50% 25 Gm/50 Ml Syringe) 12.5 gm IV PUSH PRN PRN; Protocol PRN Reason: Hypoglycemia Ezetimibe (Ezetimibe 10 Mg Tablet) 10 mg PO QAM [facility] Fluticasone Propionate (Fluticasone Propionate 0.05% Na Spr 16 Gm Btl (*Bkc)) 2 spray NASAL DAILY [facility] Last Admin: 09/28/22 09:59 Dose: 2 spray Glucagon (Glucagon For Inj 1 Mg Vial) 1 mg IM PRN PRN; Protocol PRN Reason: Hypoglycemia Glucose (Glucose Oral Gel 15 Gm Of Glucse In 37.5 Gm Tube) 15 gm PO PRN PRN; Protocol PRN Reason: Hypoglycemia Hydralazine HCl (Hydralazine Hcl 20 Mg/Ml Vial) 10 mg IV PUSH Q4H PRN PRN Reason: Blood Pressure - High Last Admin: 09/29/22 03:36 Dose: 10 mg Dextrose (Dextrose 5% 1,000 Ml) 1,000 mls @ 100 mls/hr IVPB PRN PRN; Protocol PRN Reason: Hypoglycemia Sodium Chloride (Normal Saline Iv) 500 mls @ 100 mls/hr IV CONT .Q5H [facility] Insulin Aspart (Insulin Aspart (*Bkc) 100 Units/Ml) 2 - 5 units SUB-Q TIDWM [facility]; Protocol Last Admin: 09/29/22 08:18 Dose: Not Given Levothyroxine Sodium (Levothyroxine Sodium 100 Mcg Tablet) 100 mcg BY MOUTH DAILY@0630 [facility] Last Admin: 09/29/22 05:00 Dose: 100 mcg Loratadine (Loratadine 10 Mg Tablet) 10 mg PO DAILY [facility] Last Admin: 09/28/22 09:15 Dose: 10 mg Losartan Potassium (Losartan Potassium 50 Mg Tablet) 50 mg PO DAILY [facility] Last Admin: 09/28/22 09:15 Dose: 50 mg Meclizine HCl (Meclizine Hcl 25 Mg Tablet) 25 mg PO TID PRN PRN Reason: dizziness Last Admin: 09/29/22 03:37 Dose: 25 mg Metoprolol Tartrate (Metoprolol Tartrate 25 Mg Tablet) 25 mg PO Q12HR JERED Last Admin: 09/28/22 21:14 Dose: 25 mg Morphine Sulfate (Morphine Sulfate (*Crx) 2 Mg/Ml Inj) 2 mg IV PUSH Q4H PRN PRN Reason: chest Pain Rated 5-10 Nitroglycerin (Nitroglycerin Sl 0.4 Mg Tablet) 0.4 mg SUBLINGUAL Q5MIN PRN PRN Reason: Chest Pain Ondansetron HCl (Ondansetron Inj 4 Mg/2 Ml Vial) 4 mg IV PUSH Q4H PRN PRN Reason: N
--- NOTE | 2022-09-29 09:54 | ECG_ITS ---
Measurements Intervals [place] Rate: 60 P: 38 VT: 130 QRS: 39 QRSD: 98 T: 78 QT: 417 QTc: 419 Interpretive Statements SINUS RHYTHM BASELINE ARTIFACT- I, II, III, AVR, AVL, AVF NORMAL ECG COMPARED TO ECG 09/29/2022 03:18:39 SINUS RHYTHM NOW PRESENT Electronically Signed On 09-29-2022 10:53:36 CDT by Toney Montero D.O.
--- NOTE | 2022-09-29 09:56 | WPDCARDPROC ---
Cardiac Cath Procedure Note Date of procedure:: 09/29/22 Performing physician:: Donny Rivera MD Indication:: acute coronary syndrome Brief clinical history:: this is a 56-year-old diabetes hypertension and dyslipidemia presenting with chest pain and troponin rise given the diagnosis of ACS/ non ST elevation AK Procedure Procedure performed:: left ventriculogram coronary angiogram PCI (BILL) to proximal and mid RCA Sedation/Medication given:: fentanyl 50 mg Versed 2 mg case start time 9:10 a.m. case end time 9:49 a.m. sedation provided by Shannon Curry RN, trained observer Access site:: right femoral artery Estimated blood loss:: 30 cc Procedure note:: patient was brought to the cardiac catheterization lab in the postabsorptive state where the right femoral triangle was prepared and draped in the normal fashion. Anesthesia was provided with 1% lidocaine infiltrated locally. Using the modified Seldinger technique a 5 Lithuanian sheath was placed into the right femoral artery after this left heart catheterization was carried out 5 Lithuanian angled pigtail catheter was used to document hemodynamics and to inject the left ventriculogram in the DIALLO projection following this a standard 5 Lithuanian JR4 catheter was used to engage and inject the right coronary artery and then a 5 Lithuanian FL4 catheter was used to engage and inject the left coronary artery. The cineangiograms were then reviewed and PCI of the right coronary artery was recommended and carried out as detailed below. Prior to PCI the patient received aspirin, 600 mg of Plavix and was given a bolus and infusion of Angiomax for procedural anticoagulation. The 5 Lithuanian sheath was exchanged over a guidewire for 6 Lithuanian sheath. PCI was then carried out as described below. Following the procedure the sheath was sutured into position the patient was taken to the holding area for recovery and sheath removal. Procedure was well tolerated and uncomplicated. Findings:: Hemodynamics: Central aortic pressure is 1 the 22 over 60 left ventricle 122/80 end-diastolic pressure 18 there was no gradient on pullback across the aortic valve. Left ventricle: The LV is normal in size. There is a small region of mid anterior hypokinesia remainder of the LV contracts well with a global ejection fraction I would estimate to be 60% by visual estimation the left main coronary artery is long and widely patent left anterior descending is a moderate caliber artery extending down to the apex the LAD and its branches are smooth and angiographically normal. The circumflex is a small to medium in size giving rise to the marginal branches the circumflex is also smooth and angiographically free of disease. The right coronary artery is large and dominant to the posterior circulation. There is a proximal 80% stenosis in the RCA. After this there is mild 30-40% stenosis extending into the 2nd portion of the right coronary. Intervention: The right coronary artery was engaged using a 6 Lithuanian JR4 guiding catheter. This resulted in damping of pressure as the catheter engaged the artery deeply right up to the stenosis. I then changed for a 6 Lithuanian WRP catheter which did not result in these difficulties. I used a 0.014 BMW coronary guidewire to wire the vessel it was advanced easily into the RPL branches. Following this the a high-grade stenosis proximally was dilated with a 3 x 15 mm standard PTCA balloon at 7 atmospheres. The vessel was opened there was a focal area of dissection following the balloon up pre dilatation. There appeared to be ANGEL 3 flow in the vessel. I injected 200 mcg of intracoronary nitroglycerin to ensure that the mild stenosis distal to this was potentially spasm. The appearance of this was not changed by the nitroglycerin I therefore elected to stent the entire long area using the 3.5 by 35 mm Orsiro drug-eluting stent with an excellent anatomical result. This wa
[2022-09-29] MEDS: SODIUM CHLORIDE 0.9% IV 1,000 ML 125 ML IV CONT (10:30)
[2022-09-29] MEDS: amLODIPine BESYLATE 5 MG TABLET PO (11:28)
[2022-09-29] MEDS: LOSARTAN POTASSIUM 50 MG TABLET PO ×2 (11:28→18:55)
--- NOTE | 2022-09-29 13:42 | PM.IMPN ---
Progress Note: A&P Assessment and Plan (1) Non-ST elevated myocardial infarction: Code(s): I21.4 - Non-ST elevation (NSTEMI) myocardial infarction Status: Acute Assessment and Plan: The patient presented to the emergency department for evaluation of chest pain. Troponin elevated to 0.6. Normal appearing EKG. Symptoms and elevate Trop consistent with NSTEMI. She was started on Lovenox 1 milligram/kilogram b.i.d. and continued on ASA, lopressor. She has allergy to simvastatin but able to take atorvastatin which was advnaced. C today showing RCA stenosis with stent placement. She toelrated the procedure well. Cardiology follow ing and appreciate their input. She is on DAPT. (2) CAD (coronary artery disease): Code(s): I25.10 - Atherosclerotic heart disease of [place] coronary artery without angina pectoris Status: Acute Assessment and Plan: As above. Continue aggressive medical management. (3) Hypertension: Code(s): I10 - Essential (primary) hypertension Status: Acute Assessment and Plan: Patient's blood pressure was reviewed on 09/29 Blood pressure elevated still Will advance her losartan. (4) Type 2 diabetes mellitus: Code(s): E11.9 - Type 2 diabetes mellitus without complications Status: Acute Assessment and Plan: A1c 6.7. The patient's blood glucose was reviewed on 09/29 Glucose remains well controlled. Continue AccuCheks covering with sliding scale. Hypoglycemia protocol available as needed. Continue current medications. Educated about the benefits of leading a healthy lifestyle. (5) B12 deficiency anemia: Code(s): D51.9 - Vitamin B12 deficiency anemia, unspecified Status: Acute Assessment and Plan: B12 level <159. Appears to be asymptomatic from this. Etiology unclear. Could have atrophic gastritis or pernicious anemia. Consider celiac. poor dietary choices? Related to metformin? Will replace B12. Check for celiac. (6) Iron deficiency anemia: Code(s): D50.9 - Iron deficiency anemia, unspecified Status: Acute Assessment and Plan: Iron low with 7% saturation and ferritin at 5.38. Suspect etiology related to the B12 deficiency or dietary. Check stool for occult blood. Needs GI workup when able. (7) Dyslipidemia: Code(s): E78.5 - Hyperlipidemia, unspecified Status: Acute Assessment and Plan: As above. Advanced atorvastatin to 80mg. (8) Hypothyroidism: Code(s): E03.9 - Hypothyroidism, unspecified Status: Acute Assessment and Plan: TSH normal. Continue Synthroid Subjective Date/time seen: 09/29/22 13:42 Interval history: 56yo female with DM, HTN and HLD here for chest pain. Patient is back from her procedure. She tolerated well. She does complain of nausea. No chest pain or shortness of breath. No melena or hematochezia. She has not had a colonoscopy in the past. She did have an EGD a long time ago which showed gastritis. No dietary restrictions but she does eat a lot of junk food . No dietary intolerance with milk products or gluten.Not had gastric bypass Exam Narrative: AF 97.8 161/74 59 16 99% ra Gen - NARD Chest - CTA bilaterally, nml RR CV - RRR S1/S2. Tele showing no significant dysrhythmias but bradycardia at night Abd - Soft, NT/ND, Positive BS Ext - No pedal edema. Right groin site without hematoma Psych - Nml mood and affect Skin - Warm and dry Objective Data Vital Signs Vital Signs: Vital Signs - 24 hr 09/28/22 16:00 09/28/22 14:00 09/28/22 16:00 Temperature 98.1 F Pulse Rate 57 L 68 Respiratory Rate 16 Blood Pressure 151/80 H Pulse Oximetry 98 Oxygen Delivery Room Air 09/28/22 16:00 09/28/22 18:00 09/28/22 20:00 Temperature 97.9 F Pulse Rate 48 L 52 L 61 Respiratory Rate 20 Blood Pressure 156/67 H Pulse Oximetry 99 Oxygen Delivery 09/28/22 21:14 09/28/22 20:0
[2022-09-29] MEDS: ONDANSETRON INJ 4 MG/2 ML VIAL IV PUSH (13:48)
--- NOTE | 2022-09-29 14:19 | SUR.PHASEII ---
Pt transferred back to IMU 210. Report given to IMU RN and right groin puncture site looked at and palpated together. Call light left within reach with family present at bedside.
[2022-09-29 14:26] LABS: Glucose Point of Care 107 mg/dl (65-105)
[2022-09-29] MEDS: FLUTICASONE PROPIONATE 0.05% NA SPR 16 GM BTL (*BKC) 2 SPRAY NASAL (14:51)
[2022-09-29] MEDS: METOPROLOL TARTRATE 25 MG TABLET PO ×2 (15:49→20:16)
[2022-09-29] MEDS: CLOPIDOGREL BISULFATE 75 MG TABLET PO (15:52)
[2022-09-29] MEDS: IRON SUCROSE COMPLEX 200 MG in SODIUM CHLORIDE 0.9% IV 50 ML 120 MG IVPB (15:53)
[2022-09-29] MEDS: PANTOPRAZOLE 40 MG TABLET PO (15:54)
--- NOTE | 2022-09-29 16:00 | PCCCNOTE ---
On 09/29/22, the student, [Jeanne Richard ], provided care and completed [facility] documentation on this patient. I have reviewed the student's documentation and agree with the findings.
[2022-09-29 16:44] LABS: Glucose Point of Care 153 mg/dl (65-105)
[2022-09-29] MEDS: CYANOCOBALAMIN INJ 1,000 MCG/ML VIAL 1000 MCG IM (17:18)
[2022-09-29] MEDS: CYANOCOBALAMIN 1,000 MCG TABLET 1000 MCG PO (17:18)
[2022-09-29] MEDS: PROMETHAZINE HCL 25 MG TABLET PO (17:53)
[2022-09-29 20:15] LABS: Glucose Point of Care 191 mg/dl (65-105)
[2022-09-30] VITALS (9 sets, daily range): BP systolic 119–142; BP diastolic 60–71; PULSE 46–86; RESP 16–20; TEMP 36.2–36.4; O2SAT 96–100
[2022-09-30] MEDS: ACETAMINOPHEN 325 MG TABLET 650 MG PO (04:41)
[2022-09-30] MEDS: LEVOTHYROXINE SODIUM 100 MCG TABLET BY MOUTH (04:41)
--- NOTE | 2022-09-30 05:11 | ECG_ITS ---
Measurements Intervals [place] Rate: 44 P: 25 IN: 161 QRS: 41 QRSD: 95 T: 110 QT: 456 QTc: 393 Interpretive Statements SINUS BRADYCARDIA T WAVE ABNORMALITY IN HIGH LATERAL LEADS- CONSIDER ISCHEMIA ABNORMAL ECG COMPARED TO ECG 09/29/2022 10:10:57 SINUS BRADYCARDIA NOW PRESENT T WAVE ABNORMALLITY NOW PRESENT Electronically Signed On 09-30-2022 11:49:25 CDT by Toney Montero D.O.
[2022-09-30 08:25] LABS: Glucose Point of Care 146 mg/dl (65-105)
[2022-09-30] MEDS: amLODIPine BESYLATE 5 MG TABLET PO (08:38)
[2022-09-30] MEDS: ASPIRIN 81 MG CHEWABLE TABLET PO (08:38)
[2022-09-30] MEDS: ATORVASTATIN 40 MG TABLET 80 MG PO (08:39)
[2022-09-30] MEDS: FLUTICASONE PROPIONATE 0.05% NA SPR 16 GM BTL (*BKC) 2 SPRAY NASAL (08:39)
[2022-09-30] MEDS: EZETIMIBE 10 MG TABLET PO (08:39)
[2022-09-30] MEDS: CYANOCOBALAMIN 1,000 MCG TABLET 1000 MCG PO (08:39)
[2022-09-30] MEDS: CHOLECALCIFEROL 1,000 UNITS TABLET 1000 UNITS PO (08:39)
[2022-09-30] MEDS: METOPROLOL TARTRATE 25 MG TABLET PO (08:40)
[2022-09-30] MEDS: LORATADINE 10 MG TABLET PO (08:40)
[2022-09-30] MEDS: LOSARTAN POTASSIUM 100 MG TABLET PO (10:04)
[2022-09-30] MEDS: PANTOPRAZOLE 40 MG TABLET PO (10:04)
[2022-09-30] MEDS: IRON SUCROSE COMPLEX 100 MG in SODIUM CHLORIDE 0.9% IV 50 ML 220 MG IVPB (10:04)
--- NOTE | 2022-09-30 11:03 | PM.PNCARD ---
Progress Note: A&P Assessment and Plan (1) Non-ST elevated myocardial infarction: Code(s): I21.4 - Non-ST elevation (NSTEMI) myocardial infarction Status: Acute Assessment and Plan: Patient without prior symptoms has developed an acute coronary syndrome with a non-STEMI. Has been pain-free since admission. EKG shows very questionable ST depression in the lateral leads on admission. However, having a non-STEMI puts her at risk of significant morbidity and mortality. Taken to [facility] yesterday for angiogram +/- PCI s/p PCI to the RCA yesterday Continue ASA, statin, plavix VSS, no ectopy on telemetry. Stable for discharge home today. Outpatient referral for cardiac rehab (2) Hypertension: Code(s): I10 - Essential (primary) hypertension Status: Acute Assessment and Plan: --Improved with addition of amlodipine --continue losartan, added metoprolol. (3) Dyslipidemia: Code(s): E78.5 - Hyperlipidemia, unspecified Status: Acute Assessment and Plan: Takes atorvastatin 40 mg daily. Increased to 80 mg qd this admission. -- LDL good but not perfect -- add ezetimibe (4) Type 2 diabetes mellitus: Code(s): E11.9 - Type 2 diabetes mellitus without complications Status: Acute Assessment and Plan: Sounds like the diabetes is well controlled.--continue Farxiga, metformin (5) RBC microcytosis: Code(s): R71.8 - Other abnormality of red blood cells Status: Acute Assessment and Plan: borderline anemia with microcytic indices --receiving iron infusion before d/c -- continue PPI (change omeprazole to protonix) Subjective Date/time seen: 09/30/22 11:03 Cardiology follow up for NSTEMI Feeling well this morning. No ongoing chest pain. Denies shortness of breath, palpitations. Mild tenderness at arterial insertion site. Review of Systems Constitutional: Constitutional: Denies fever(s) Eyes: Eyes: Reports blurry vision (Episode of blurred vision about a week ago. Unclear etiology.) ENT: Denies epistaxis Cardiovascular: Cardiovascular: Reports chest pain (Yesterday ), Denies pedal edema, Denies lightheadedness and Denies dyspnea Respiratory: Respiratory: Denies chest congestion and Denies dyspnea Gastrointestinal: Gastrointestinal: Denies abdominal pain and Denies hematochezia Genitourinary: Genitourinary: Denies hematuria Musculoskeletal: Musculoskeletal: Reports no additional musculoskeletal complaints Integumentary/Breasts: Skin/Breast: Reports system reviewed and no additional complaints, except as docu Neurologic: Reports system reviewed and no additional complaints, except as documented, Denies behavioral changes and Denies confusion Psychiatric: Psychiatric: Denies behavioral changes and Denies confusion Exam Const: General: cooperative, healthy appearing and comfortable; No confusion Orientation/consciousness: oriented to person, patient oriented x3 and No confusion HENMT: Mouth: Yes moist mucous membranes Eyes: General: appearance normal, both eyes and all related structures EOM: EOMs intact bilaterally Neck: Neck: no JVD Thyroid: thyroid normal Carotids: no bruits Resp: Effort & Inspection: normal respiratory effort Auscultation: clear to auscultation bilaterally Cardio: Rate: regular rate Rhythm: regular rhythm Heart sounds: Murmur heart sound present (1-2/6 systolic ejection murmur left upper sternal border) GI: Inspection: normal to inspection Skin: General skin exam: normal color and no rashes or lesions noted Neuro: General: oriented to person, patient oriented x3 and No confusion Extrem: Right lower extremity: no edema Left lower extremity: no edema Psych: Appearance: grossly normal Mental Status: mental status grossly normal Objective Data Vital Signs Vital Signs: Vital Signs - 24 hr 09/29/22 11:15 09/29/22 11:30 09/29/22 11:45 Temperature Pulse Rate 59 L 60 59
[2022-09-30 11:53] LABS: Glucose Point of Care 78 mg/dl (65-105)
--- NOTE | 2022-09-30 15:28 | PM.DS ---
DS: Admitting Diagnosis Discharge Date 09/30/22 Admitting Diagnosis Chest pain DS: Discharge Diagnosis Discharge Diagnosis (1) Non-ST elevated myocardial infarction: Code(s): I21.4 - Non-ST elevation (NSTEMI) myocardial infarction Status: Acute (2) CAD (coronary artery disease): Code(s): I25.10 - Atherosclerotic heart disease of [place] coronary artery without angina pectoris Status: Acute (3) Hypertension: Code(s): I10 - Essential (primary) hypertension Status: Acute (4) Type 2 diabetes mellitus: Code(s): E11.9 - Type 2 diabetes mellitus without complications Status: Acute (5) B12 deficiency anemia: Code(s): D51.9 - Vitamin B12 deficiency anemia, unspecified Status: Acute (6) Iron deficiency anemia: Code(s): D50.9 - Iron deficiency anemia, unspecified Status: Acute (7) Dyslipidemia: Code(s): E78.5 - Hyperlipidemia, unspecified Status: Acute (8) Hypothyroidism: Code(s): E03.9 - Hypothyroidism, unspecified Status: Acute DS: Summary Hospital Course Reason for hospitalization: 56yo female with DM, HTN and HLD here for chest pain. Please see H&P for details Hospital Course: The patient presented to the emergency department for evaluation of chest pain. Troponin elevated to 0.6. Normal appearing EKG. Symptoms and elevate Trop consistent with NSTEMI. She was started on Lovenox 1 milligram/kilogram b.i.d. and continued on ASA, lopressor. She has allergy to simvastatin but was taking atorvastatin on admission which was advanced. LHC 09/29 showing RCA stenosis with stent placement. Please see procedure noted for details. She was started on DAPT. Patient's blood pressure was monitored and elevated so losartan advanced. A1c 6.7. The patient's blood glucose was monitored with AccuCheks covering with sliding scale.? Hypoglycemia protocol available as needed.?Educated about the benefits of leading a healthy lifestyle. Patient noted to be anemic. B12 level <159. Appears to be asymptomatic from this. B12 was replaced. Also noted to have iron deficiency anemia. Iron low with 7% saturation and ferritin at 5.38. Iron replacement started. Needs GI workup when able. ApneaLink was normal. She overall did well was able be discharged home on 09/30/2022. Status at Discharge Cognitive/behavioral status at discharge: Stable Time Spent with Patient Time attestation: Total time spent providing and/or coordinating discharge services: 34 minutes Exam Narrative: AF 97.5 119/60 52 20 99% ra Gen - NARD Chest - CTA bilaterally, nml RR CV - RRR S1/S2 Abd - Soft, NT/ND, Positive BS Ext - No pedal edema. Right groin site without hematoma Psych - Nml mood and affect Skin - Warm and dry DS: Data Data Completed and Pending Labs on day of discharge: Labs from last 24 hours 09/30/22 09/30/22 09/29/22 11:41 08:13 19:34 POC Capillary Glucose 78 146 H 191 H Reticulin IgG Antibody Reticulin IgA Antibody Tiss Transglut IgA Comm Anti-Gliadin IgG Deam Gliadin (Deamidat) IgA Celiac Comment 09/29/22 09/29/22 16:26 04:40 POC Capillary Glucose 153 H Reticulin IgG Antibody Pending Reticulin IgA Antibody Pending Tiss Transglut IgA Comm Pending Anti-Gliadin IgG Deam Pending Gliadin (Deamidat) IgA Pending Celiac Comment Pending Discharge Plan Discharge Attending physician on discharge: Carlos A Aponte Discharging Clinician: Carlos A Aponte Anticipated Discharge Date/Time: 09/30/22 15:34 Patient Disposition: Home, Self-Care Activity: other - see discharge instructions Diet: heart healthy and diabetic Discharge Instructions: [facility] [address]
[2022-10-07 19:44] LABS: Gliadin AB, IgG <1.0 U/mL (<15.0); TTG IGA AB <1.0 U/mL (<15.0)
== END 2022-09-30 16:05 | disposition home or self-care (01) | DRG 247 ==
LOC: ANHED 08:20 → ANHIMU 10:34
PROVIDERS: Emergency Medicine; Internal Medicine Cardiovascular Disease; Physician Assistant; Specialist; Admitting Provider Internal Medicine; Emergency Provider Emergency Medicine; PCP Family Medicine; Visit Provider Internal Medicine
PROC: 4A023N7 Measurement of Cardiac Sampling and Pressure, Left Heart, Percutaneous Approach (ICD-10-PCS; CPT 93452; principal; 2022-09-29 11:30)
PROC: 027034Z Dilation of Coronary Artery, One Artery with Drug-eluting Intraluminal Device, Percutaneous Approach (ICD-10-PCS; 2022-09-29 11:30)
DX: I21.4 Non-ST elevation (NSTEMI) myocardial infarction (principal); I25.10 Atherosclerotic heart disease of native coronary artery without angina pectoris; I11.0 Hypertensive heart disease with heart failure; E11.9 Type 2 diabetes mellitus without complications; D51.9 Vitamin B12 deficiency anemia, unspecified; D50.9 Iron deficiency anemia, unspecified; E78.5 Hyperlipidemia, unspecified; E03.9 Hypothyroidism, unspecified; Z82.49 Family history of ischemic heart disease and other diseases of the circulatory system; Z82.3 Family history of stroke; Z79.84 Long term (current) use of oral hypoglycemic drugs; Z79.52 Long term (current) use of systemic steroids; Z79.890 Hormone replacement therapy; Z79.899 Other long term (current) drug therapy
CPT/HCPCS: 36415; 71046; 71275; 80048; 80053; 80061; 82607; 82728; 82746; 82948; 83036; 83540; 83550; 83690; 83735; 84443; 84484; 85014; 85018; 85025; 85027; 85380; 85610; 85730; 86255; 86364; 93005; 93458; 96372; 96374; 99285; A9270; C1725; C1769; C1874; C1887; C1894; C9600; G0378; J0360; J0461; J0583; J1644; J1650; J1756; J2250; J2370; J2405; J3010; J3420; J7030; J7040; Q9967

== ENCOUNTER 2022-10-01 12:59 | Emergency (ER) | payer OTHER, SELFPAY ==
[2022-10-01] VITALS (9 sets, daily range): BP systolic 104–154; BP diastolic 46–65; PULSE 53–62; RESP 11–18; O2SAT 100
--- NOTE | ~2022-10-01 | XR_ITS ---
XR chest 2V DATE: 10/01/2022 13:28 INDICATION: Left chest pain, left arm tingling. TECHNIQUE: PA and lateral chest COMPARISON: 09/27/2022 CT pulmonary scan 09/27/2022 PA and lateral chest FINDINGS: Normal heart size. No hilar or mediastinal enlargement. No pulmonary infiltrate or consolid ation, pleural effusion or pulmonary vascular congestion or pneumothorax. Degenerative spurring of the thoracic spine. IMPRESSION: No active cardiopulmonary disease Reviewed, dictated and finalized at location B.
--- NOTE | 2022-10-01 13:00 | ECG_ITS ---
Measurements Intervals [place] Rate: 57 P: 1 WI: 117 QRS: 40 QRSD: 98 T: 69 QT: 413 QTc: 404 Interpretive Statements SINUS BRADYCARDIA WITH SHORT WI INTERVAL BASELINE ARTIFACT- I, III, AVR, AVL BORDERLINE ECG COMPARED TO ECG 09/30/2022 10:39:06 NO SIGNIFICANT CHANGES Electronically Signed On 10-01-2022 14:37:51 CDT by Toney Montero D.O.
[2022-10-01 13:33] LABS: Basophils Absolute Auto 0.1 K/mm3 (0.0-0.1); Basophils Percent Auto 0.7 % (0.2-1.2); Eosinophils Absolute Auto 0.3 K/mm3 (0-0.3); Eosinophils Percent Auto 2.9 % (0-4.4); Hematocrit 37.4 % (37.0-47.0); Hemoglobin 11.1 g/dL (12.0-15.0); Immature Granulocyte Absolute 0.05 K/mm3 (0.00-0.031); Immature Granulocyte Percent A 0.4 % (0-0.5); Lymphocytes Absolute Auto 2.45 K/mm3 (0.9-3.2); Lymphocytes Percent Auto 21.8 % (18.3-44.2); Mean Corpuscular HGB Conc 29.7 g/dl (32-36); Mean Corpuscular Hemoglobin 24.8 pg (26-34); Mean Corpuscular Volume 83.7 fl (80-100); Mean Platelet Volume 10.2 fl (7.4-10.4); Monocytes Percent Auto 8.9 % (2.6-8.5); Neutrophils Absolute Auto 7.3 K/mm3 (1.3-6.7); Neutrophils Percent Auto 65.3 % (45.5-73.1); Platelet Count Result 416 k/mm3 (150-375); Red Blood Count 4.47 M/mm3 (4.2-5.4); Red Cell Distribution Width 16.5 % (11.5-14.5); White Blood Count 11.2 K/mm3 (4.5-10.0)
[2022-10-01 13:36] LABS: Prothrombin Time 12.4 Seconds (11.1-14.7)
[2022-10-01 13:37] LABS: Partial Thromboplastin Time 34.4 SECONDS (22.3-36.8)
--- NOTE | 2022-10-01 13:38 | ED.CHESTPAIN ---
HPI - Chest Pain General Chief Complaint: Chest Pain Stated Complaint: chest pain - s/p stent placement Time Seen by Provider: 10/01/22 13:10 Source: patient and RN notes reviewed Mode of arrival: ambulatory Limitations: no limitations History of Present Illness HPI narrative: This is 39 year old female female with history of hypertension, hyperlipidemia and CAD s/p stent 2 days ago who presents for evaluation of chest pain. Patient reports around 11 am this morning she had pressure across her chest into her shoulder blade. She also reported burning to her left shoulder. This pain feels similar to when she came in a few days ago, and she was diagnosed with NSTEMI. She required stent in her RCA 2 days ago. She had associated dizziness, nausea, shortness of breath. THis pain last approximately 1.5 hours. She reports her chest pain has mostly resolve. Her states that she was washing dishes at onset but nothing strenuous. She has taken her aspirin and plavix. rates current pain 07/22 Related Data Home Medications Medication Instructions Recorded Confirmed loratadine 10 mg tablet (Claritin) 10 mg PO DAILY 03/10/22 09/27/22 cholecalciferol (vitamin D3) 25 25 mcg PO DAILY 09/23/22 09/27/22 mcg (1,000 unit) tablet omega 5-tdq-bqa-fish oil 1,200 mg 1,200 cap PO DAILY 09/23/22 09/28/22 (144 mg-216 mg) capsule (Fish Oil) dapagliflozin 5 mg tablet (Farxiga) 5 mg PO DAILY 09/27/22 09/28/22 levothyroxine 100 mcg tablet 100 mcg DAILY 09/27/22 09/27/22 omeprazole 20 mg capsule,delayed 20 mg DAILY 09/27/22 09/27/22 release Allergies Allergy/AdvReac Type Severity Reaction Status Date / Time lisinopril Allergy Severe Swelling Verified 10/01/22 13:22 of the Eye simvastatin AdvReac Intermediate Palpitation Verified 10/01/22 13:22 s Review of Systems Constitutional: Constitutional: Denies weakness Cardiovascular: Cardiovascular: Reports chest pain, Denies syncope, Denies rapid heart rate, Denies irregular heart rhythm, Denies leg edema and Reports dyspnea Respiratory: Respiratory: Denies chest congestion, Denies hemoptysis, Denies excessive phlegm production and Denies dyspnea Gastrointestinal: Gastrointestinal: Denies abdominal pain, Denies hematochezia, Denies diarrhea and Denies vomiting Genitourinary: Genitourinary: Denies hematuria and Denies dysuria Musculoskeletal: Musculoskeletal: Denies joint swelling, Denies loss of height and Denies muscle weakness Neurologic: Denies syncope, Denies focal weakness and Denies weakness PMF Past Medical History Medical History (Updated 10/01/22 @ 17:26 by Hannah Sheppard MD) CAD (coronary artery disease) Dyslipidemia Hypertension Hypothyroidism Non-ST elevated myocardial infarction Type 2 diabetes mellitus Surgical History Surgical History (Updated 10/01/22 @ 13:49 by Hannah Sheppard MD) History of delivery History of hysterectomy S/P coronary artery stent placement Family History Family History Mother Hypertension Family history of diabetes mellitus in first degree relative Acute myocardial infarction [place] in her late 60s Father Cerebrovascular accident Stroke in his mid 60s Acute myocardial infarction ID in his mid 50s , Onset Age: 70 Sibling Family history of diabetes mellitus in first degree relative Diabetes mellitus Acute myocardial infarction Sibling COPD (chronic obstructive pulmonary disease) Social History Social History (Updated 09/27/22 @ 21:47 by Cindy Canales PA-C) Social History: Surrogate medical decision maker: Ramesh Martinez, spouse. Code status: Full code. Smoking status: Never smoker Second hand tobacco smoke exposure: No Alcohol intake: never Substance use: never Substance use type: does not use Lack of Transportation: YES Lack of Food: Never True Current Housing: [place]
[2022-10-01 13:48] LABS: Anisocytosis 1+ (NORMAL); Giant Platelets Present; Ovalocytes 1+ (NORMAL); Platelet Estimate Increased (Adequate)
[2022-10-01 13:49] LABS: Schistocytes None Seen (NORMAL)
[2022-10-01 14:09] LABS: Alanine Aminotransferase 19 U/L (6-35); Albumin Level 4.4 g/dL (3.5-5.1); Alkaline Phosphatase 87 U/L (38-126); Anion Gap 8 mmol/L (8-16); Aspartate Amino Transferase 24 U/L (14-36); Bilirubin,Total 0.7 mg/dL (0.2-1.3); Blood Urea Nitrogen 13 mg/dL (7-17); Calcium 9.5 mg/dL (8.4-10.2); Carbon Dioxide 27 mmol/L (22-30); Chloride 105 mmol/L (98-107); Estimated CRCL calculation 79 ml/min; Estimated Glomerular Filt Rate > 60; Glucose 98 mg/dL (65-110); Lipase 166 U/L (23-300); Potassium 3.8 mmol/L (3.4-5.0); Sodium 140 mmol/L (137-145)
[2022-10-01 14:21] LABS: Glucose Point of Care 99 mg/dl (65-105)
[2022-10-01 14:25] LABS: Troponin I 0.101 ng/mL (0.000-0.034)
[2022-10-01] MEDS: ASPIRIN 81 MG CHEWABLE TABLET 324 MG PO (14:26)
[2022-10-01 16:44] LABS: Troponin I 0.085 ng/mL (0.000-0.034)
== END 2022-10-01 17:39 | disposition home or self-care (01) ==
PROVIDERS: Emergency Medicine; Emergency Provider General Practice; PCP Family Medicine
DX: R07.9 Chest pain, unspecified (principal); R00.1 Bradycardia, unspecified; I25.10 Atherosclerotic heart disease of native coronary artery without angina pectoris; E78.5 Hyperlipidemia, unspecified; I10 Essential (primary) hypertension; E03.9 Hypothyroidism, unspecified; E11.9 Type 2 diabetes mellitus without complications
CPT/HCPCS: 36415; 71046; 80053; 82948; 83690; 84484; 85025; 85610; 85730; 93005; 99284; A9270

== ENCOUNTER 2022-12-31 15:00 | Outpatient (RCR) | payer OTHER, SELFPAY ==
[2022-11-18 15:26] VITALS: PULSE 56
== END 2023-01-23 07:46 | disposition home or self-care (01) ==
LOC: ANHCPREHAB 15:00
PROVIDERS: PCP Family Medicine; Visit Provider Internal Medicine Cardiovascular Disease
DX: Z95.5 Presence of coronary angioplasty implant and graft (principal)
CPT/HCPCS: 93798

== ENCOUNTER 2023-05-11 05:47 | Day surgery (SDC) | payer OTHER, SELFPAY ==
[2023-04-16 09:36] VITALS: BMI 32.4
--- NOTE | 2023-05-08 14:01 | WPDANESEPPF ---
Anes - Initial Pre Proc Eval Procedure: Operation Date: 05/11/23 07:30 Proposed Procedures p Diagnostic Colonoscopy - Irvin Sanchez MD Date/Time: 05/08/23 14:01 Surgeon: Irvin Sanchez MD Pre Op Diagnosis: Hemorrhoids,Other Specified Diseases-Anus & Rectum Patient Data Age: 57 Gender: F Height: 1.6 m Weight: 83 kg Allergies Allergy/AdvReac Type Severity Reaction Status Date / Time lisinopril Allergy Severe Swelling Verified 05/11/23 06:13 of the Eye simvastatin AdvReac Intermediate Palpitation Verified 05/11/23 06:13 s Home Medications Medication Instructions Recorded Confirmed Type blood sugar diagnostic (OneTouch #50 ea 03/26/20 03/02/23 Rx Ultra Blue Test Strip) loratadine 10 mg tablet (Claritin) 10 mg PO DAILY 03/10/22 05/11/23 History cholecalciferol (vitamin D3) 25 25 mcg PO DAILY 09/23/22 05/11/23 History mcg (1,000 unit) tablet meclizine 25 mg tablet 25 mg PO TID PRN dizziness #30 tabs 09/23/22 05/11/23 Rx omega 1-nge-vsf-fish oil 1,200 mg 1,200 cap PO DAILY 09/23/22 05/11/23 History (144 mg-216 mg) capsule (Fish Oil) amlodipine 5 mg tablet (Norvasc) 5 mg PO QAM 30 days #30 tabs 09/30/22 05/11/23 Rx aspirin 81 mg chewable tablet 81 mg PO DAILY@0800 30 days #30 09/30/22 05/11/23 Rx (Children's Aspirin) tabs atorvastatin 40 mg tablet 80 mg PO DAILY 30 days #60 tabs 09/30/22 05/11/23 Rx clopidogrel 75 mg tablet 75 mg PO DAILY 30 days #30 tabs 09/30/22 05/11/23 Rx losartan 100 mg tablet 100 mg PO DAILY 30 days #30 tabs 09/30/22 05/11/23 Rx metoprolol tartrate 25 mg tablet 25 mg PO Q12HR 30 days #60 tabs 09/30/22 05/11/23 Rx dapagliflozin propanediol 5 mg 5 mg PO DAILY #90 tabs 12/14/22 05/11/23 Rx tablet (Farxiga) metformin 1,000 mg tablet 1,000 mg PO BID #180 tabs 12/14/22 05/11/23 Rx omeprazole 20 mg capsule,delayed 20 mg PO DAILY #90 caps 12/14/22 05/11/23 Rx release levothyroxine 100 mcg tablet See Rx Instructions .Route 01/18/23 05/11/23 Rx .COMPLEX #90 tabs ezetimibe 10 mg tablet (Zetia) 10 mg PO QAM #90 tabs 01/25/23 05/11/23 Rx ferrous sulfate 324 mg (65 mg 324 mg PO BID #180 tabs 01/25/23 05/11/23 Rx iron) tablet,delayed release cyanocobalamin (vitamin B-12) 1,000 mcg PO QAM #90 tabs 02/01/23 05/11/23 Rx 1,000 mcg tablet (Vitamin B-12) methylcellulose (laxative) 500 mg 1,000 mg PO BID 03/02/23 05/11/23 History tablet (Fiber Laxative (methylcellulose)) Patient hx anesthesia problems: none Family hx anesthesia problems: none Results Review: All pre-operative results and documents have been reviewed as part of the pre-operative evaluation. [facility], [facility] Past Medical History Medical History (Updated 03/02/23 @ 16:56 by ARGELIA Macedo) BMI greater than 30 CAD (coronary artery disease) Dyslipidemia Hypertension Hypothyroidism Non-ST elevated myocardial infarction Rectal pain Type 2 diabetes mellitus Surgical History Surgical History (Updated 05/08/23 @ 14:02 by Vimal Farooq DO) History of delivery History of hysterectomy S/P coronary artery stent placement 08/2022 Family History Family History Mother Acute myocardial infarction [place] in her late 60s Family history of diabetes mellitus in first degree relative Hypertension High cholesterol Father Acute myocardial infarction [place] in his mid 50s , Onset Age: 70 Cerebrovascular accident Stroke in his mid 60s Sibling Diabetes mellitus Acute myocardial infarction Family history of diabetes mellitus in first degree relative Sibling COPD (chronic obstructive pulmonary disease) High cholesterol Social History Social History Social History: Surrogate medical decision maker: Ramesh Martinez, spouse. Code status: Full code. Smoking status: Never smoker Second hand tobacco smoke exposure: No Alcoho
[2023-05-11 06:20] VITALS: BMI 32.5
[2023-05-11 06:21] VITALS: BP 152/67; PULSE 41; RESP 16; TEMP 36.3; O2SAT 98
[2023-05-11] MEDS: LACTATED RINGERS 1,000 ML 150 ML IV CONT (06:25)
[2023-05-11 06:26] LABS: Glucose Point of Care 125 mg/dl (65-105)
--- NOTE | 2023-05-11 07:24 | PM.HPGS ---
History of Present Illness History of Present Illness Consent: Risks, benefits, and alternatives have been discussed and questions answered. Patient agrees to proceed with procedure. Chief complaint: Hemorrhoids,Other Specified Diseases-Anus & Rectum Narrative: Ayla Martinez is a 57 year old female Presents for colonoscopy. Patient has had occasional rectal pain and bleeding. This will occur intermittently. Patient presents today for colonoscopy. Suppositories which appears to alleviate symptoms but symptoms do occur are intermittently. Patient denies any weight loss. Family history noncontributory. Patient presents today for colonoscopy to assess more thoroughly. Review of Systems Review of Systems: Review of systems noncontributory. [facility] Past Medical History Medical History (Updated 03/02/23 @ 16:56 by ARGELIA Macedo) BMI greater than 30 CAD (coronary artery disease) Dyslipidemia Hypertension Hypothyroidism Non-ST elevated myocardial infarction Rectal pain Type 2 diabetes mellitus Surgical History Surgical History (Updated 05/08/23 @ 14:02 by Vimal Farooq, ) History of delivery History of hysterectomy S/P coronary artery stent placement 08/2022 Family History Family History Mother Acute myocardial infarction [place] in her late 60s Family history of diabetes mellitus in first degree relative Hypertension High cholesterol Father Acute myocardial infarction [place] in his mid 50s , Onset Age: 70 Cerebrovascular accident Stroke in his mid 60s Sibling Diabetes mellitus Acute myocardial infarction Family history of diabetes mellitus in first degree relative Sibling COPD (chronic obstructive pulmonary disease) High cholesterol Social History Social History Social History: Surrogate medical decision maker: Ramesh Martinez, spouse. Code status: Full code. Smoking status: Never smoker Second hand tobacco smoke exposure: No Alcohol intake: never Substance use: never Substance use type: does not use Lack of Transportation: YES Lack of Food: Never True Current Housing: I Have Housing Concerned About Future Housing: No Difficulty Paying Gas/Electric Bills: No Difficulty Paying for Meds: No Currently Unemployed: No Education: High School Diploma/GED Difficulty w/ Childcare or Family Care: No Living arrangements: with family Additional living arrangements comments: Lives with spouse in [place]. Grown son and daughter. 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 Spiritual care concerns: No Meds Home Medications and Allergies Home Medications Medication Instructions Recorded Confirmed Type blood sugar diagnostic (OneTouch #50 ea 03/26/20 03/02/23 Rx Ultra Blue Test Strip) loratadine 10 mg tablet (Claritin) 10 mg PO DAILY 03/10/22 05/11/23 History cholecalciferol (vitamin D3) 25 25 mcg PO DAILY 09/23/22 05/11/23 History mcg (1,000 unit) tablet meclizine 25 mg tablet 25 mg PO TID PRN dizziness #30 tabs 09/23/22 05/11/23 Rx omega 9-aga-tey-fish oil 1,200 mg 1,200 cap PO DAILY 09/23/22 05/11/23 History (144 mg-216 mg) capsule (Fish Oil) amlodipine 5 mg tablet (Norvasc) 5 mg PO QAM 30 days #30 tabs 09/30/22 05/11/23 Rx aspirin 81 mg chewable tablet 81 mg PO DAILY@0800 30 days #30 09/30/22 05/11/23 Rx (Children's Aspirin) tabs atorvastatin 40 mg tablet 80 mg PO DAILY 30 days #60 tabs 09/30/22 05/11/23 Rx clopidogrel 75 mg tablet 75 mg PO DAILY 30 days #30 tabs 09/30/22 05/11/23 Rx losartan 100 mg tablet 100 mg PO DAILY 30 days #30 tabs 09/30/22 05/11/23 Rx metoprolol tartrate 25 mg tablet 25 mg PO Q12HR 30 days #60 tabs 09/30/22 05/11/23 Rx dapagliflozin propanediol 5 mg 5 m
[2023-05-11 07:43] VITALS: BP 90/47; PULSE 48; RESP 16; O2SAT 97
[2023-05-11 07:53] VITALS: BP 107/58; PULSE 45; RESP 14; O2SAT 99
[2023-05-11 08:03] VITALS: BP 119/62; PULSE 42; RESP 14; O2SAT 99
--- NOTE | 2023-05-11 13:31 | WPDANESPN ---
Anes - Prog Note Post-Op Date/Time: 05/11/23 13:31 Cardiovascular status: normal Respiratory status: normal Airway patency: baseline Mental status: baseline Post-Op hydration status: normal Vital Signs: Last Vital Signs Temp 36.3 C L 05/11/23 06:21 Pulse 42 L 05/11/23 08:03 Resp 14 05/11/23 08:03 BP 119/62 05/11/23 08:03 Pulse Ox 99 05/11/23 08:03 O2 Del Method Room Air 05/11/23 08:03 Pain Score (VAS): 0 I/O: Intake & Output 05/10/23 05/11/23 05/11/23 23:59 07:59 15:59 Intake Total 700 300 Balance 700 300 05/11/23 06:23 POC Capillary Glucose 125 H Post-procedural complaints: none Patient Feedback: Patient satisfied with anesthetic care. Other Findings: Patient vital signs back to baseline. Patient denies nausea and vomiting. Patient's pain under control. Patient OK for discharge.
== END 2023-05-11 08:16 | disposition home or self-care (01) ==
PROVIDERS: PCP Family Medicine; Visit Provider Internal Medicine Gastroenterology
PROC: 0DJD8ZZ Inspection of Lower Intestinal Tract, Via Natural or Artificial Opening Endoscopic (ICD-10-PCS; CPT 45378; principal; 2023-05-11 07:30)
DX: Z12.11 Encounter for screening for malignant neoplasm of colon (principal); K62.5 Hemorrhage of anus and rectum
CPT/HCPCS: 45378

== ENCOUNTER → 2023-06-20 08:32 | Outpatient (CLI) | payer OTHER, SELFPAY ==
--- NOTE | ~2023-06-20 | DEXA_ITS ---
Bone Density Report Name: ROSIE TERRY Age: 57 Sex: Female Ethnicity: White Date of : 1965 Indication: postmenopausal; screening for osteoporosis; hysterectomy; Referring Provider: Amy Pineda Study: Bone densitometry was performed. Exam Date: June 20, 2023 Accession number: [id number] Bone Density: Region BMD T-score Z-score Classification AP Spine (L1-L4) 1.049 0.0 1.3 Normal Femoral Neck (Left) 0.824 -0.2 0.9 Normal Total Hip (Left) 0.972 0.2 1.1 Normal Femoral Neck (Right) 0.817 -0.3 0.9 Normal Total Hip (Right) 0.965 0.2 1.0 Normal Total Hip Mean 0.969 0.2 1.1 Normal World Health Organization criteria for BMD impression classify patients as: Normal (T-score at or above -1.0), Osteopenia (T-score between -1.0 and -2.5), or Osteoporosis (T-score at or below -2.5). 10-year Fracture Risk: FRAX not reported because: All T-scores for Spine Total, Hip Total, Femoral Neck at or above -1.0 Clinical Information Provided by Patient: Has used the following medications: Vitamin D, LEVOTHYROXINE Has the following medical conditions: Hysterectomy Patient maximum height was 63.8 Menopause Age: 30 No regular weight bearing exercise Drinks caffeinated beverages Onset of menses at age 15 Number of children 2 Impression: The patient has normal bone mass. Discussion: BONE DENSITY IS ABOVE THE MINIMUM DESIRABLE LEVEL AT ALL SKELETAL SITES TESTED. This patient?s bone mineral density is above the minimum desirable level (T-score -1.0 or better) at all sites measured. The patient should follow a healthful lifestyle (good nutrition with adequate calcium and vitamin D, and appropriate weight-bearing exercise). Follow-Up: Consider repeating this study in 5 years or sooner if there is some new clinical indication. Reported by: SHAHRZAD on 06/20/2023 9:13:00 AM. Reviewed, dictated and finalized at location AJenny BARROSO
== END ==
PROVIDERS: PCP Physician Assistant Medical; Visit Provider Physician Assistant Medical
DX: Z78.0 Asymptomatic menopausal state (principal)
CPT/HCPCS: 77080

== ENCOUNTER 2023-09-15 10:10 | Emergency (ER) | payer OTHER, SELFPAY ==
--- NOTE | ~2023-09-15 | XR_ITS ---
EXAMINATION: XR chest 1V portable Exam Date/Time: 09/15/2023 15:25 [employer] HISTORY: paresthesias Comparison: 10/01/2022. RESULT: Lines, tubes, and devices: None. Lungs and pleura: Clear. Cardiomediastinal silhouette: Stable. Other: No acute osseous or upper abdominal finding. IMPRESSION: No acute cardiopulmonary process. Reviewed, dictated and finalized at location K. [employer]
[2023-09-15 10:12] VITALS: BP 148/85; PULSE 63; RESP 16; TEMP 36.6; O2SAT 99
--- NOTE | 2023-09-15 10:16 | ECG_ITS ---
Measurements Intervals [place] Rate: 56 P: 26 WI: 155 QRS: 45 QRSD: 102 T: 9 QT: 425 QTc: 413 Interpretive Statements SINUS BRADYCARDIA LOW QRS VOLTAGE IN PRECORDIAL LEADS BORDERLINE ECG COMPARED TO ECG 10/01/2022 13:02:36 NO SIGNIFICANT CHANGES Electronically Signed On 09-15-2023 10:52:23 VISUAL BASIC DEVELOPER by Toney Montero D.O.
[2023-09-15 15:19] VITALS: BP 128/64; PULSE 50; RESP 14; O2SAT 100
[2023-09-15 17:14] VITALS: BP 119/56; PULSE 59; RESP 16; O2SAT 99
--- NOTE | 2023-09-15 17:17 | ED.GENADULT ---
HPI - General Adult General Chief complaint: Unspecified Stated complaint: back and arm tingling Time Seen by Provider: 09/15/23 15:49 History of Present Illness HPI narrative: Patient is a 57-year-old female with a history of diabetes, hypothyroidism presenting with paresthesias. States that she was at work this morning when she developed paraesthesias in both of her arms and across her upper back. She denies any pain. No chest, back, abdominal pain. No shortness of breath or lightheadedness. No diaphoresis or nausea. No leg swelling. States that she had a heart attack a couple of years ago so she became concerned and wanted to get checked out. She currently has no symptoms. Related Data Home Medications Medication Instructions Recorded Confirmed loratadine 10 mg tablet (Claritin) 10 mg PO DAILY 03/10/22 05/11/23 cholecalciferol (vitamin D3) 25 25 mcg PO DAILY 09/23/22 05/11/23 mcg (1,000 unit) tablet omega 8-dwk-cpw-fish oil 1,200 mg 1,200 cap PO DAILY 09/23/22 05/11/23 (144 mg-216 mg) capsule (Fish Oil) methylcellulose (laxative) 500 mg 1,000 mg PO BID 03/02/23 05/11/23 tablet (Fiber Laxative (methylcellulose)) Allergies Allergy/AdvReac Type Severity Reaction Status Date / Time lisinopril Allergy Severe Swelling Verified 09/15/23 10:10 of the Eye simvastatin AdvReac Intermediate Palpitation Verified 09/15/23 10:10 s Review of Systems Review of Systems: All systems reviewed & are unremarkable except as noted in HPI and below PMFSH Past Medical History Medical History BMI greater than 30 CAD (coronary artery disease) Dyslipidemia Hypertension Hypothyroidism Non-ST elevated myocardial infarction Rectal pain Type 2 diabetes mellitus Surgical History Surgical History History of delivery History of hysterectomy S/P coronary artery stent placement 08/2022 Family History Family History Mother Acute myocardial infarction [place] in her late 60s Family history of diabetes mellitus in first degree relative Hypertension High cholesterol Father Acute myocardial infarction [place] in his mid 50s , Onset Age: 70 Cerebrovascular accident Stroke in his mid 60s Sibling Diabetes mellitus Acute myocardial infarction Family history of diabetes mellitus in first degree relative Sibling COPD (chronic obstructive pulmonary disease) High cholesterol Social History Social History Social History: Surrogate medical decision maker: Ramesh Martinez, spouse. Code status: Full code. Smoking status: Never smoker Second hand tobacco smoke exposure: No Alcohol intake: never Substance use: never Substance use type: does not use Lack of Transportation: YES Lack of Food: Never True Current Housing: I Have Housing Concerned About Future Housing: No Difficulty Paying Gas/Electric Bills: No Difficulty Paying for Meds: No Currently Unemployed: No Education: High School Diploma/GED Difficulty w/ Childcare or Family Care: No Living arrangements: with family Additional living arrangements comments: Lives with spouse in [place]. Grown son and daughter. 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 Spiritual care concerns: No Exam Narrative: GENERAL: Well-appearing, nontoxic, no acute distress, pleasant cooperative HEAD: Normocephalic, atraumatic. EYES: PERRLA and EOMI. ENT: Grossly unremarkable NECK: Supple. CHEST: Clear to auscultation. No respiratory distress. HEART: Bradycardic, regular rhythm ABDOMEN: Soft, nontender, nondistended EXTREMITIES: Normal range of motion. No
[2023-09-15 17:50] LABS: Basophils Absolute Auto 0.1 K/mm3 (0.0-0.1); Eosinophils Absolute Auto 0.5 K/mm3 (0-0.3); Eosinophils Percent Auto 5.3 % (0-4.4); Hematocrit 47.2 % (37.0-47.0); Hemoglobin 14.8 g/dL (12.0-15.0); Immature Granulocyte Absolute 0.02 K/mm3 (0.00-0.031); Immature Granulocyte Percent A 0.2 % (0-0.5); Lymphocytes Absolute Auto 2.53 K/mm3 (0.9-3.2); Lymphocytes Percent Auto 28.7 % (18.3-44.2); Mean Corpuscular HGB Conc 31.4 g/dl (32-36); Mean Corpuscular Hemoglobin 30.1 pg (26-34); Mean Corpuscular Volume 95.9 fl (80-100); Mean Platelet Volume 10.5 fl (7.4-10.4); Monocytes Absolute Auto 0.6 K/mm3 (0.1-0.6); Monocytes Percent Auto 6.7 % (2.6-8.5); Neutrophils Absolute Auto 5.1 K/mm3 (1.3-6.7); Neutrophils Percent Auto 58.1 % (45.5-73.1); Platelet Count Result 301 k/mm3 (150-375); Red Blood Count 4.92 M/mm3 (4.2-5.4); Red Cell Distribution Width 13.9 % (11.5-14.5); White Blood Count 8.8 K/mm3 (4.5-10.0)
[2023-09-15 18:03] LABS: INR 0.9; Prothrombin Time 12.7 Seconds (11.1-14.7)
[2023-09-15 18:04] LABS: Partial Thromboplastin Time 27.2 SECONDS (22.3-36.8)
[2023-09-15 18:05] LABS: Alanine Aminotransferase 27 U/L (6-35); Albumin Level 4.5 g/dL (3.5-5.1); Alkaline Phosphatase 64 U/L (38-126); Anion Gap 7 mmol/L (8-16); Aspartate Amino Transferase 27 U/L (14-36); Bilirubin,Total 0.5 mg/dL (0.2-1.3); Blood Urea Nitrogen 12 mg/dL (7-17); Calcium 9.8 mg/dL (8.4-10.2); Carbon Dioxide 28 mmol/L (22-30); Chloride 107 mmol/L (98-107); Estimated CRCL calculation 91 ml/min; Estimated Glomerular Filt Rate > 60; Glucose 132 mg/dL (65-110); Magnesium 1.9 mg/dL (1.6-2.3); Potassium 3.7 mmol/L (3.4-5.0); Sodium 142 mmol/L (137-145)
[2023-09-15 18:16] LABS: Troponin I < 0.012 ng/mL (0.000-0.034)
[2023-09-15 18:52] VITALS: BP 120/60; PULSE 65; RESP 16; O2SAT 98
== END 2023-09-15 18:52 | disposition home or self-care (01) ==
PROVIDERS: Emergency Provider Emergency Medicine; PCP Family Medicine
DX: R20.2 Paresthesia of skin (principal); E11.9 Type 2 diabetes mellitus without complications; E03.9 Hypothyroidism, unspecified; I25.10 Atherosclerotic heart disease of native coronary artery without angina pectoris; I10 Essential (primary) hypertension; I25.2 Old myocardial infarction; E78.5 Hyperlipidemia, unspecified
CPT/HCPCS: 36415; 71045; 80053; 83735; 84484; 85025; 85610; 85730; 93005; 99284

== ENCOUNTER 2023-10-03 07:35 | Outpatient (CLI) | payer OTHER, SELFPAY ==
--- NOTE | ~2023-10-03 | MM_ITS ---
EXAMINATION: MM screening ricardo BI w joon HISTORY: Screening mammogram TECHNIQUE: Craniocaudal and mediolateral oblique 3-D tomosynthesis images were obtained and synthetic 2-D images were generated. CAD analysis was submitted and interpreted. COMPARISON: August 26, 2022, May 11, 2021 bilateral screening mammogram examinations BREAST PARENCHYMAL COMPOSITION: There are scattered areas of fibroglandular density. FINDINGS: There is no evidence of suspicious mass, calcification, or architectural distortion to sugg est malignancy in either breast. There has been no suspicious interval change. IMPRESSION: 1. No mammographic evidence of malignancy. 2. Recommend routine screening mammography in one year. BI-RADS Category 1: Negative Reviewed, dictated and finalized at location A.
== END 2023-10-03 07:36 ==
LOC: MICIMG 07:36
PROVIDERS: PCP Family Medicine; Visit Provider Family Medicine
DX: Z12.31 Encounter for screening mammogram for malignant neoplasm of breast (principal)
CPT/HCPCS: 77063; 77067

== ENCOUNTER 2024-05-03 04:35 | Emergency (ER) | payer OTHER, SELFPAY ==
[2024-05-03] VITALS (9 sets, daily range): BP systolic 92–156; BP diastolic 50–64; PULSE 56–65; RESP 11–17; TEMP 36.7; O2SAT 97–99
--- NOTE | ~2024-05-03 | XR_ITS ---
EXAMINATION: XR chest 1V portable DATE: 05/03/2024 06:08 INDICATION: Chest pain. Left arm pain. TECHNIQUE: A single frontal view of the chest was obtained. COMPARISON: Chest single view 09/15/2023, chest CT 09/27/2022 FINDINGS: There is no pneumonia, pleural effusion, or pneumothorax. The heart size is normal. IMPRESSION: 1. No acute cardiopulmonary disease. Reviewed, dictated and finalized at location A.
--- NOTE | 2024-05-03 05:12 | ECG_ITS ---
Test Date: 2024-05-03 05:34:45 Measurements Intervals [place] Rate: 57 P: 25 DC: 160 QRS: 2 QRSD: 93 T: 20 QT: 414 QTc: 403 Interpretive Statements SINUS BRADYCARDIA No previous ECG available for comparison Electronically Signed On 05-03-2024 09:42:58 CDT by Keisha Nicole M.D.
--- NOTE | 2024-05-03 05:25 | ED.GENADULT ---
HPI - General Adult General Chief complaint: Extremity Injury, Upper Stated complaint: left arm pain Time Seen by Provider: 05/03/24 04:39 History of Present Illness HPI narrative: Patient is a 58-year-old male who presents emergency department this morning complaining of left upper extremity pain. Patient states that left arm has been hurting all night starting at 8:00 p.m. last and describes it as a throbbing pain. Denies any recent falls or trauma to the left. Denies any swelling. Patient states that she finally went to sleep and states that the pain was off but then started up again this morning. Patient states in September of 2022 she had heart attack and at that time her symptoms were chest pain, back pain and right arm pain so she got a little concerned and wanted to get checked out. She is currently denying any chest pain, any back pain, any shortness of breath, denies any recent URI symptoms denies any fevers or chills and denies any nausea, vomiting or abdominal pain. No additional symptoms or concerns at this time. Related Data Home Medications Medication Instructions Recorded Confirmed loratadine 10 mg tablet (Claritin) 10 mg PO DAILY 03/10/22 04/04/24 cholecalciferol (vitamin D3) 25 25 mcg PO DAILY 09/23/22 04/04/24 mcg (1,000 unit) tablet omega 4-rcv-leq-fish oil 1,200 mg 1,200 cap PO DAILY 09/23/22 04/04/24 (144 mg-216 mg) capsule (Fish Oil) Allergies Allergy/AdvReac Type Severity Reaction Status Date / Time lisinopril Allergy Severe Swelling Verified 05/03/24 04:35 of the Eye simvastatin AdvReac Intermediate Palpitation Verified 05/03/24 04:35 s Review of Systems Review of Systems: All systems are reviewed and are negative unless stated otherwise in the HPI. [facility] Past Medical History Medical History BMI 34.0-34.9,adult BMI greater than 30 CAD (coronary artery disease) Dyslipidemia Hypertension Hypothyroidism Non-ST elevated myocardial infarction Rectal pain Type 2 diabetes mellitus Surgical History Surgical History History of delivery History of hysterectomy S/P coronary artery stent placement 08/2022 Family History Family History Mother Acute myocardial infarction [place] in her late 60s Family history of diabetes mellitus in first degree relative Hypertension High cholesterol Father Acute myocardial infarction [place] in his mid 50s , Onset Age: 70 Cerebrovascular accident Stroke in his mid 60s Sibling Diabetes mellitus Acute myocardial infarction Family history of diabetes mellitus in first degree relative Sibling COPD (chronic obstructive pulmonary disease) High cholesterol Social History Social History Social History: Surrogate medical decision maker: Ramesh Martinez, spouse. Code status: Full code. Smoking status: Never smoker Second hand tobacco smoke exposure: No Alcohol intake: never Substance use: never Substance use type: does not use Lack of Transportation: YES Lack of Food: Never True Current Housing: I Have Housing Concerned About Future Housing: No Difficulty Paying Gas/Electric Bills: No Difficulty Paying for Meds: No Currently Unemployed: No Education: High School Diploma/GED Difficulty w/ Childcare or Family Care: No Living arrangements: with family Additional living arrangements comments: Lives with spouse in [place]. Grown son and daughter. 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 Spiritual care concerns: No Exam Narrative: General: Alert, awake, afebrile, in no acute distress. HEENT: PERRL, no rhinorrhea, no post nasal d
[2024-05-03 06:02] LABS: Basophils Absolute Auto 0.1 K/mm3 (0.0-0.1); Basophils Percent Auto 0.8 % (0.2-1.2); Eosinophils Absolute Auto 0.1 K/mm3 (0-0.3); Eosinophils Percent Auto 1.8 % (0-4.4); Hematocrit 44.2 % (37.0-47.0); Hemoglobin 14.2 g/dL (12.0-15.0); Immature Granulocyte Absolute 0.02 K/mm3 (0.00-0.031); Immature Granulocyte Percent A 0.3 % (0-0.5); Lymphocytes Absolute Auto 1.52 K/mm3 (0.9-3.2); Lymphocytes Percent Auto 19.7 % (18.3-44.2); Mean Corpuscular HGB Conc 32.1 g/dl (32-36); Mean Corpuscular Hemoglobin 30.3 pg (26-34); Mean Corpuscular Volume 94.2 fl (80-100); Mean Platelet Volume 10.7 fl (7.4-10.4); Monocytes Absolute Auto 0.5 K/mm3 (0.1-0.6); Monocytes Percent Auto 5.8 % (2.6-8.5); Neutrophils Absolute Auto 5.5 K/mm3 (1.3-6.7); Neutrophils Percent Auto 71.6 % (45.5-73.1); Platelet Count Result 270 k/mm3 (150-375); Red Blood Count 4.69 M/mm3 (4.2-5.4); Red Cell Distribution Width 13.2 % (11.5-14.5); White Blood Count 7.7 K/mm3 (4.5-10.0)
[2024-05-03 06:21] LABS: Alanine Aminotransferase 34 U/L (6-35); Albumin Level 4.1 g/dL (3.5-5.1); Alkaline Phosphatase 68 U/L (38-126); Anion Gap 8 mmol/L (4-12); Aspartate Amino Transferase 25 U/L (14-36); Bilirubin,Total 0.5 mg/dL (0.2-1.3); Blood Urea Nitrogen 13 mg/dL (7-17); Calcium 9.6 mg/dL (8.4-10.2); Carbon Dioxide 27 mmol/L (22-30); Chloride 104 mmol/L (98-107); Estimated CRCL calculation 78 ml/min; Estimated Glomerular Filt Rate > 60; Glucose 154 mg/dL (65-110); Magnesium 1.8 mg/dL (1.6-2.3); Potassium 3.8 mmol/L (3.4-5.0); Sodium 139 mmol/L (137-145)
[2024-05-03 06:26] LABS: Troponin I < 0.012 ng/mL (0.000-0.034)
== END 2024-05-03 06:45 | disposition home or self-care (01) ==
PROVIDERS: Emergency Provider Emergency Medicine; PCP Family Medicine
DX: M79.602 Pain in left arm (principal); I25.2 Old myocardial infarction; I25.10 Atherosclerotic heart disease of native coronary artery without angina pectoris; I10 Essential (primary) hypertension; E78.5 Hyperlipidemia, unspecified; E03.9 Hypothyroidism, unspecified; E11.9 Type 2 diabetes mellitus without complications; Z95.5 Presence of coronary angioplasty implant and graft; Z90.710 Acquired absence of both cervix and uterus; Z79.84 Long term (current) use of oral hypoglycemic drugs; Z79.82 Long term (current) use of aspirin; Z79.899 Other long term (current) drug therapy; R00.1 Bradycardia, unspecified
CPT/HCPCS: 36415; 71045; 80053; 83735; 84484; 85025; 93005; 99284

== ENCOUNTER 2024-06-07 08:27 | Outpatient (CLI) | payer OTHER, SELFPAY ==
--- NOTE | ~2024-06-07 | XR_ITS ---
3 VIEWS LUMBAR SPINE Ordering provider: Amy Pineda, [facility] History: . M54.50 - Low back pain, unspecified . Comparison: None. FINDINGS: VERTEBRAL BODIES:mild levoscoliosis lumbar spine. No visible fracture or subluxation. Degenerative c hanges of the spine. DISK SPACES: Severe narrowing of the disc L3-4. SOFT TISSUES: Aortic atherosclerotic changes. IMPRESSION: No acute osseous abnormality lumbar spine. Severe degenerative disc disease at the level of L3-L4. Reviewed, dictated and finalized at location A. [employer]
== END 2024-06-07 08:28 | disposition home or self-care (01) ==
PROVIDERS: PCP Family Medicine; Visit Provider Physician Assistant Medical
DX: M51.369 Other intervertebral disc degeneration, lumbar region without mention of lumbar back pain or lower extremity pain (principal)
CPT/HCPCS: 72100

== ENCOUNTER 2024-10-08 08:09 | Outpatient (CLI) | payer OTHER, SELFPAY ==
--- NOTE | ~2024-10-08 | MM_ITS ---
EXAMINATION: MM screening ricardo BI w joon HISTORY: Screening TECHNIQUE: Craniocaudal and mediolateral oblique 3-D tomosynthesis images were obtained and synthetic 2-D images were generated. CAD analysis was submitted and interpreted. COMPARISON: 10/03/2023 BREAST PARENCHYMAL COMPOSITION: There are scattered areas of fibroglandular density. FINDINGS: Punctate calcifications are detected bilaterally, stable and benign in appearance. Stable parenchymal pattern without suspicious microcalcifications, architectural distortion, discrete masses or significant asymmetry. IMPRESSION: 1. No mammographic evidence of malignancy. 2. Recommend routine screening mammography in one year. BI-RADS Category 2: Benign finding(s). Reviewed, dictated and finalized at location A.
== END 2024-10-08 08:10 | disposition home or self-care (01) ==
LOC: MICIMG 08:10
PROVIDERS: PCP Family Medicine; Visit Provider Family Medicine
DX: Z12.31 Encounter for screening mammogram for malignant neoplasm of breast (principal)
CPT/HCPCS: 77063; 77067